=== PATIENT | male | born 1950 | race Caucasian/White ===

== ENCOUNTER → 2020-12-13 09:17 | Outpatient (BNVA) | payer MEDICARE, OTHER, SELFPAY | PROVIDERS: Family Provider Family Medicine; PCP Family Medicine; Visit Provider Surgery | DX: Z01.812 Encounter for preprocedural laboratory examination (principal); Z20.822 Contact with and (suspected) exposure to COVID-19 | CPT/HCPCS: 87635 ==

== ENCOUNTER 2020-12-18 08:38 | Day surgery (SDC) | payer MEDICARE, OTHER, SELFPAY ==
[2020-12-18 09:34] VITALS: BP 128/72; PULSE 58; RESP 18; TEMP 37.1; O2SAT 98
--- NOTE | 2020-12-18 09:37 | ANES.PREANE2 ---
Pre-Anesthetic Assessment Pre-Anesthetic Assessment: Height/Weight: Height 1.68 m Weight 85.729 kg Temp Pulse Resp BP Pulse Ox 98.7 F 58 L 18 128/72 98 12/18/20 09:34 12/18/20 09:34 12/18/20 09:34 12/18/20 09:34 12/18/20 09:34 Preop Diagnosis: Change in bowel habits Proposed Procedure: Operation Date: 12/18/20 10:15 Proposed Procedures p Colonoscopy 82567 R19.7(Not Applicable) - Mikey Sandy MD Was Beta Yvonne taken within 24 hours: N/A Was Clonidine taken within 24 hours: N/A Last intake: Intake Last Liquid Date 12/17/20 Last Liquid Time 20:30 Last Solid Date 12/16/20 Last Solid Time 20:00 Social: Social History: No alcohol and No tobacco Exam: Pre-Anes Outpt Exam: alert, oriented x 3, clear to auscultation bilaterally and regular rate & rhythm Airway: Submandibular: WNL Cervical ROM: WNL MP: 2 CV/HEM: CV/HEM: HTN Musc/skel: Musc/skel: RA Anesthetic Plan: ASA status: 2 Anesthesia: MAC Risk of > 500 ml blood loss (7ml/kg in children): No PFSH Anesthesia PFSH: Family History Father CAD (coronary artery disease) Grandmother Cancer Grandfather Stroke Denies family history of Diabetes Hypertension Social History Smoking and tobacco status: never smoked Alcohol intake: never Lives independently: Yes Household members: spouse Data Anesthesia Cardiac Studies: No Data to Display
[2020-12-18] MEDS: sodium chloride 0.9% 1,000 ML 30 ML IV (09:39)
--- NOTE | 2020-12-18 09:40 | W.PM.OPSUD ---
Surgery/Procedure H&P Update DATE OF PROCEDURE: December 18, 2020 DATE H&P PERFORMED: 11/21/20 H&P UPDATE INFORMATION: I have reviewed H&P completed within last 30 days, I have examined patient prior to procedure and No changes to prior documentation PREOP DIAGNOSIS: Change in bowel habits PRIMARY INDICATION FOR PROCEDURE: The same PLANNED PROCEDURE: Operation Date: 12/18/20 10:15 Proposed Procedures p Colonoscopy 66314 R19.7(Not Applicable) - Mikey Sandy MD
[2020-12-18 10:42] VITALS: BP 122/55; PULSE 63; RESP 18; TEMP 36.1; O2SAT 100
--- NOTE | 2020-12-18 11:09 | ANE.PACU2 ---
Inpatient post-anesthesia follow up: Airway intact: Yes Vital signs: Temperature 97.0 F Pulse Rate 63 Respiratory Rate 18 Blood Pressure 122/55 Pulse Oximetry 100 Oxygen Delivery Me thod Room Air Oxygen Flow Rate Fraction of Inspir ed Oxygen Hydration adequate: Yes Nausea and vomiting: No Pain level: 1 Mental status: Baseline
== END 2020-12-18 11:20 | disposition home or self-care (01) ==
PROVIDERS: PCP Family Medicine; Visit Provider Surgery
PROC: 0DJD8ZZ Inspection of Lower Intestinal Tract, Via Natural or Artificial Opening Endoscopic (ICD-10-PCS; CPT 45378; principal; 2020-12-18 10:15)
DX: R19.4 Change in bowel habit (principal); K57.30 Diverticulosis of large intestine without perforation or abscess without bleeding; Z82.49 Family history of ischemic heart disease and other diseases of the circulatory system
CPT/HCPCS: 45378; 83630; 84311; 87493; 87506; 96360; J2704; J7030

== ENCOUNTER → 2023-10-12 12:31 | Outpatient (BNVA) | payer MEDICARE, OTHER, SELFPAY | PROVIDERS: PCP Family Medicine; Referring Provider Family Medicine; Visit Provider Specialist | DX: G56.03 Carpal tunnel syndrome, bilateral upper limbs (principal); G56.23 Lesion of ulnar nerve, bilateral upper limbs; R29.898 Other symptoms and signs involving the musculoskeletal system | CPT/HCPCS: 95911 ==

== ENCOUNTER → 2023-11-08 09:03 | Outpatient (BNVA) | payer MEDICARE, OTHER, SELFPAY | PROVIDERS: PCP Family Medicine; Visit Provider Specialist | DX: G56.03 Carpal tunnel syndrome, bilateral upper limbs (principal) | CPT/HCPCS: 73110; 99204 ==

== ENCOUNTER 2024-08-10 07:26 | Outpatient (CLI) | payer MEDICARE, OTHER, SELFPAY ==
--- NOTE | 2024-08-10 07:29 | CTR_ITS ---
PROCEDURE INFORMATION: Exam: CT Temporal Bones Without Contrast. Exam date and time: 08/10/2024 7:55 AM Age: 74 years old Clinical indication: Hearing loss; Additional info: Chronic serous otitis media, bilateral TECHNIQUE: Imaging protocol: Computed tomography of the temporal bones without contrast. Radiation optimization: All CT scans at this facility use at least one of these dose optimization techniques: automated exposure control; mA and/or kV adjustment per patient size (includes targeted exams where dose is matched to clinical indication); or iterative reconstruction. COMPARISON: No relevant prior studies available. RADIATION DOSE METRICS: Total DLP (mGy-cm): 558.41 FINDINGS: RIGHT TEMPORAL BONE: Right mastoid process is not developmentally pneumatized. Right middle ear cavity and attic are opacified, but middle ear ossicles and scutum appear intact. There is apparent dehiscence of the tegmen tympani (series 11, image 67) No gross bone destruction involving the bony labyrinth. LEFT TEMPORAL BONE: Left mastoid process is not developmentally pneumatized. There is a fluid level within the attic and thinning of the left tegmen tympani, with possible small foci of dehiscence posteriorly and anteriorly (series 7, image 62; series 7, image 74). Left middle ear ossicles appear intact. There is partial opacification of the left middle ear cavity, including sinus tympani, facial recess, Prussak space, and adjacent to the stapes. The scutum appears intact. No obvious bone destruction involving the bony labyrinth. Incidental note of a midline 1 cm mucous retention cyst or polypoid mass in the right frontal. A right nasal septal spur is also noted. CT/CT temporal bone wo con* [id number] IMPRESSION: 1. Bilateral otitis media involving the mastoid antra, with relatively wide dehiscence of the anterior tegmen tympani on the right and probable small foci of dehiscence involving the left tegmen tympani. Middle ear opacification is more extensive on right than left. No obvious bone destruction involving middle ear ossicles or scuta. 2. Developmentally absent pneumatization of the mastoid processes.
== END 2024-08-10 07:27 | disposition home or self-care (01) ==
LOC: RAD 07:28
PROVIDERS: PCP Family Medicine; Visit Provider Specialist
DX: H65.23 Chronic serous otitis media, bilateral (principal); H90.6 Mixed conductive and sensorineural hearing loss, bilateral
CPT/HCPCS: 70480

== ENCOUNTER 2025-07-25 07:07 | Emergency (ER) | payer MEDICARE, OTHER, SELFPAY ==
--- NOTE | 2025-07-25 07:13 | W.ED.GENADLT ---
HPI - General Adult General: Chief complaint: GI Bleed Stated complaint: blood coming out of butt-painful Time Seen by Provider: 07/25/25 07:12 History of Present Illness: 75-year-old male presents emergency room complaining of bright red blood per rectum. This been ongoing for 4 months he has been treated presumptively for diverticulitis and hemorrhoids several times. He has had a CT back in May in [place]. He has not had any recent endoscopy. Patient is having bleeding in between bowel movements. He wakes up bleeding is saturated his underwear. He is not on any anticoagulants. Denies fever sweats or chills Associated symptoms: Deny chest pain, dyspnea or rash Related Data Home Medications ?Medication ?Instructions ?Recorded ?Confirmed adalimumab 40 mg/0.8 mL 40 mg SUBCUT Q14D 11/21/20 07/25/25 subcutaneous syringe kit (Humira) atorvastatin 20 mg tablet 20 mg PO DAILY 11/21/20 07/25/25 hydrochlorothiazide 25 mg tablet 25 mg PO DAILY 11/21/20 07/25/25 acetaminophen 650 mg 1,300 mg PO Q12H PRN patient 07/25/25 07/25/25 tablet,extended release (Tylenol Arthritis Pain) azelastine 0.05 % eye drops 1 drp ophthalmic (eye) BID 07/25/25 07/25/25 cholecalciferol (vitamin D3) 1,250 1,250 mcg PO Q7D 07/25/25 07/25/25 mcg (50,000 unit) capsule dexamethasone 0.5 mg/5 mL oral See Rx Instructions .Route .COMPLEX 07/25/25 07/25/25 elixir famotidine 20 mg tablet 20 mg PO BID 07/25/25 07/25/25 finasteride 5 mg tablet 5 mg PO DAILY 07/25/25 07/25/25 hydrocortisone 2.5 % topical cream 1 applic TN BID 07/25/25 07/25/25 with perineal applicator (Procto-Med HC) meloxicam 15 mg tablet 15 mg PO DAILY 07/25/25 07/25/25 omeprazole 20 mg capsule,delayed 20 mg PO DAILY 07/25/25 07/25/25 release potassium chloride 20 mEq 20 meq PO QAM 07/25/25 07/25/25 tablet,extended release(part/cryst) Previous Rx's ?Medication ?Instructions ?Recorded hydrocodone 5 mg-acetaminophen 325 1 tab PO Q6H PRN pain #15 tabs 07/25/25 mg tablet ondansetron HCl 4 mg tablet 4 mg PO Q6H PRN nausea and 07/25/25 vomiting #20 tabs Allergies Allergy/AdvReac Type Severity Reaction Status Date / Time sulfamethoxazole (From Allergy Intermediate nausea/vomi Verified 01/25/24 14:51 Bactrim) ting trimethoprim (From Bactrim) Allergy Intermediate nausea/vomi Verified 01/25/24 14:51 ting Review of Systems Const: Denies: fever(s) or chills Card: Denies: chest pain Resp: Denies: dyspnea GI: Reports: hematochezia; Denies: abdominal pain : Denies: dysuria, urinary frequency or urinary urgency Musc: Denies: neck pain or back pain Skin/Breast: Denies: rash PFSH ED PFSH: Medical History Diverticulosis Enlarged prostate Require urology consultation Change in bowel habits Family History Father CAD (coronary artery disease) Grandmother Cancer Grandfather Stroke Denies family history of Diabetes Hypertension Social History Smoking and tobacco/nicotine status: never used tobacco/nicotine Alcohol intake: never Substance/Drug Use: current Lives independently: Yes Household members: spouse Physical Exam Const: GENERAL APPEARANCE: cooperative ORIENTATION/CONSCIOUSNESS: Yes awake, Yes oriented to person, Yes oriented to place and Yes oriented to time HENMT: COMMON NORMALS: normocephalic, atraumatic and hearing grossly normal bilaterally HEAD & SCALP: normocephalic and atraumatic Resp: COMMON NORMALS: normal respiratory effort, No retractions, No use of accessory muscles and clear to auscultation bilaterally AUSCULTATION: clear to auscultation bilaterally Cardio: COMMON NORMALS: regular rate, regular rhythm and No murmurs present (Cardio) RATE: regular rate RHYTHM: regular rhythm GI: COMMON NORMALS: Soft to palpation and No hepatosplenomegaly present AUSCULTATION: Yes normoactive bowel sounds PALPATION: Yes Soft to palpation, No Tenderness to palpation present (GI), No Guarding due to palpation present (GI) and Yes No hepatosplenomegaly present OTHER: Rectal exam distorted tissue with a fistulous at this 12 o'clock position on the rectum no bright red blood at this time. Mucus is sharply Hemoccult positive Extremity: COMMON NORMALS: normal to inspection, capillary refill normal, no clubbing, cyanosis or edema, no calf tenderness and no pedal edema Neuro: SENSORIUM/ORIENTATION: Yes oriented to person, Yes oriented to place and Yes oriented to time Skin: COMMON NORMALS: no rashes or lesions noted GENERAL SKIN EXAM: no rashes or lesions noted Course Vital Signs: Vital signs: Vital Signs Temperature 98.2 F 07/25/25 07:14 Pulse Rate 97 07/25/25 07:14 Respiratory Rate 20 H 07/25/25 07:14 Blood Pressure 118/63 07/25/25 09:38 Pulse Oximetry 100 07/25/25 09:38 Oxygen Delivery Me thod Room Air 07/25/25 09:38 MDM - General Adult Medical Decision Making Medical decision making Social determinants: Difficulty transportation access to medical care I reviewed the patient's medical record. I reviewed the patient's current home meds. Alternate historians: Differential diagnosis: Diverticulitis hemorrhoids rectal CA Lab Review: Hemoglobin 9.9 platelets normal Imaging: Rectal mass consistent with what was found on exam Assessment of risk Level of risk: Moderate to high Hospitalization considerations: Reviewed with patient consideration if there is evidence of near obstruction and patient does not have obstruction discussed with radiologist. Reexamination: Improved no active bleeding Assessment and plan: Discussed options. At this point he does not really want to go to [place] is a difficult time with travel for him and his . I talked to Dr. Iqbal who will see him tomorrow for biopsy. Recommend liquid diet for now. Return if has further problems. At the time of discharge he is not having active bleeding I think he can safely be discharged she was advised to return if he has further bleeding. Lab Data 07/25/25 07:27 07/25/25 07:27 Radiology Impressions Abdomen/Pelvis CT 07/25/25 07:18 IMPRESSION: 1. Soft tissue mass in the LEFT anorectal region measures 3.6 x 2.7 cm. There is displacement of the lumen to the RIGHT. 2. There is additional long segment circumferential colonic wall thickening beginning in the descending colon through the sigmoid. Pattern of enhancement can be seen with acute inflammatory bowel disease and hemorrhage. Also reperfusion after ischemia. 3. No free air or perforation. 4. Normal appendix. 5. Bilateral parapelvic cysts. 6. Prostate enlargement. Laboratory Results WBC 8.11 10^3/uL (3.29-11.43) 07/25/25 07:27 RBC 3.45 10^6/uL (3.85-5.65) L 07/25/25 07:27 Hgb 9.90 g/dL (11.27-16.99) L 07/25/25 07:27 Hct 31.1 % (37-53) L 07/25/25 07: MCV 90.1 fl (82-101) 07/25/25 07:27 MCH 28.7 pg (27-33) 07/25/25 07: MCHC 31.8 g/dL (30-55) 07/25/25 07: RDW 13.4 % (12.1-15.1) 07/25/25 07:27 Plt Count 354 10^3/cmm (157-399) 07/25/25 07:27 MPV 7.9 fL (7.4-10.4) 07/25/25 07:27 Neut % (Auto) 72.6 % 07/25/25 07:27 Lymph % (Auto) 15.0 % 07/25/25 07:27 Buchanan % (Auto) 10.4 % 07/25/25 07:27 Eos % (Auto) 1.0 % 07/25/25 07:27 Baso % (Auto) 0.4 % 07/25/25 07:27 Neut # (Auto) 5.89 10^3/uL (1.8-7.7) 07/25/25 07:27 Lymph # (Auto) 1.2 10^3/uL (0.8-4.8) 07/25/25 07:27 Buchanan # (Auto) 0.8 10^3/uL (0.2-0.9) 07/25/25 07:27 Eos # (Auto) 0.1 10^3/uL (0.0-0.8) 07/25/25 07:27 Baso # (Auto) 0.0 10^3/uL (0.0-0.1) 07/25/25 07:27 Nucleated RBC % (auto) 0 % 07/25/25 07: Nucleated RBCs # 0.0 /100WBC 07/25/25 07:27 PT 14.50 SECONDS (12.1-14.9) 07/25/25 07:27 INR 1.06 (0.8-1.2) 07/25/25 07:27 APTT 32.8 SECONDS (23.9-36.7) 07/25/25 07:27 Sodium 135 mmol/L (136-145) L 07/25/25 07:27 Potassium 3.6 mmol/L (3.5-5.1) 07/25/25 07:27 Chloride 99 mmol/L (98-107) 07/25/25 07:27 Carbon Dioxide 20 mmol/L (22-29) L 07/25/25 07:27 Anion Gap 19.6 (5-19) H 07/25/25 07:27 BUN 16 mg/dL (8-23) 07/25/25 07:27 Creatinine 0.5 mg/dL (0.7-1.2) L 07/25/25 07:27 GFR Calculation Not Reportable 07/25/25 07:27 Glucose 142 mg/dL (65-115) H 07/25/25 07:27 Calculated Osmolality 284 mOsm/kg (285-295) L 07/25/25 07:27 Calcium 8.7 mg/dL (8.5-10.5) 07/25/25 07:27 Total Bilirubin 0.5 mg/dL (0.15-1.2) 07/25/25 07:27 AST 18 U/L (0-40) 07/25/25 07:27 ALT 18 U/L (0-41) 07/25/25 07:27 Alkaline Phosphatase 104 U/L (40-130) 07/25/25 07:27 Total Protein 6.5 g/dL (6.6-8.7) L 07/25/25 07:27 Albumin 2.9 g/dL (3.5-5.2) L 07/25/25 07:27 Globulin 3.6 g/dL (1.3-4.6) 07/25/25 07:27 All radiology interpretation(s) finalized by discharge Discharge Plan Discharge Patient Disposition: Home Clinical Impression: Mass in rectum Condition: Stable Prescriptions: New hydrocodone-acetaminophen 5-325 mg tablet 1 tab PO Q6H PRN (Reason: pain) Qty: 15 0RF ondansetron HCl 4 mg tablet 4 mg PO Q6H PRN (Reason: nausea and vomiting) Qty: 20 0RF No Action atorvastatin 20 mg tablet 20 mg PO DAILY hydrochlorothiazide 25 mg tablet 25 mg PO DAILY Humira 40 mg/0.8 mL syringe kit 40 mg SUBCUT Q14D azelastine 0.05 % drops 1 drp ophthalmic (eye) BID acetaminophen [Tylenol Arthritis Pain] 650 mg Tablet Extended Release 1,300 mg PO Q12H PRN (Reason: patient ) meloxicam 15 mg tablet 15 mg PO DAILY hydrocortisone [Procto-Med HC] 2.5 % cream with perineal applicator 1 applic TN BID famotidine 20 mg tablet 20 mg PO BID finasteride 5 mg tablet 5 mg PO DAILY omeprazole 20 mg capsule,delayed release(DR/EC) 20 mg PO DAILY cholecalciferol (vitamin D3) 1,250 mcg (50,000 unit) capsule 1,250 mcg PO Q7D dexamethasone 0.5 mg/5 mL elixir See Rx Instructions .ROUTE .COMPLEX Rx Instructions: SWISH AND SPIT 5 ML BY MOUTH THREE TO FOUR TIMES DAILY. IT IS IMPORTANT TO KEEP THE MEDICATION IN THE MOUTH FOR FIVE MINUTES PRIOR TO SPITTING IT OUT. DO NOT RINSE AFTERWARD AND AVIOD EATING OR DRINKING FOR 30 MINUTES. potassium chloride 20 mEq tablet,ER particles/crystals 20 meq PO QAM Discharge Orders: Discharge ED (Routine); Ordered 07/25/25 Ordered By: Timothy Ponce Referrals: Pierre Estrada [Primary Care Provider, Family Practice] Discharge Diet: Full LIquid Patient Instructions: Opioid Safety, Pain Management, Patient Portal & Damion Instructions Activity Restrictions/Additional Instructions: You thank you for choosing [facility] for your healthcare needs today. It is very important that you follow up as instructed or that you return to the Emergency Department should you have concerns or if your condition changes or worsens in any way. Emergency department visits are focused on emergent conditions, in some cases you may require further evaluation on an outpatient basis. You are seen in the emergency room with a complaint of painful rectal bleeding on CT exam done in the emergency room there is a mass on the rectum. It is not obstructing the colon at this point this is likely the source of bleeding. We have made an appointment for you with Dr. Iqbal tomorrow morning at 11 AM to have this evaluated further and he can talk to you about the process of getting it biopsied to confirm a diagnosis and seek treatment options. It is likely that you will continue to have intermittent bleeding and painful bowel movements. You are given a prescriptions for pain and nausea medicines. Your hemoglobin at this time is stable but will need to be monitored. (Please note that included in your discharge packet is information concerning opioid safety and pain management. This information is given to all patients were discharged from the ER regardless of their discharge diagnosis or the medicines they usually take or are prescribed.) Print Language: Portuguese Coding Level of Care Code ED Alteration Workroom Supervisor for Nate Olivier
[2025-07-25 07:14] VITALS: BP 150/97; PULSE 97; RESP 20; TEMP 36.8; O2SAT 99
--- NOTE | 2025-07-25 07:18 | CT_ITS ---
WS: [id number] CT ABDOMEN AND PELVIS WITH CONTRAST HISTORY: abd pain/rectal bleeding TECHNIQUE: Imaging performed of the abdomen and pelvis with IV contrast. Single phase imaging of the abdomen. Coronal and sagittal reformats are submitted. All CT scans at [facility] use at least one of these dose optimization techniques: automated exposure control; mA and/or kV adjustment per patient size (includes targeted exams where dose is matched to clinical indication); or iterative reconstruction. IV CONTRAST: Omnipaque 350; 100 mL IV. Oral contrast: No DLP: 615.03 mGy.cm COMPARISON: 08/24/2011 Lower thorax: Lung bases are clear. Heart is normal size. Small hiatal hernia. Liver/biliary system: Normal size liver. Focal fatty sparing along the falciform ligament. No intrahepatic duct dilatation. Normal portal vein. Gallbladder: Normal. No gallstones or wall thickening. No pericholecystic fluid. Pancreas: Mild diffuse pancreatic atrophy. No duct dilatation. Spleen: Normal size with granuloma. Adrenal glands: Normal. Right kidney: Numerous parapelvic cysts. No hydronephrosis. There are numerous calcifications which are nonobstructing in the renal pelvis. Left kidney: Normal size kidney with numerous central parapelvic cysts and calcifications which are nonobstructing. Aorta: Mild atherosclerosis with no aneurysm. Lymphadenopathy: None. Free fluid: None. GI tract: Normally distended stomach. No small bowel obstruction. Normal appendix. Colon is tortuous with mild diffuse constipation. There are a few scattered diverticula beginning in the descending and through the sigmoid colon. Colonic wall thickening with increased attenuation is circumferential beginning in the mid descending colon. Long segment colonic wall thickening with a tortuous colon. Findings suspicious for a soft tissue mass near the LEFT anorectal junction measuring 3.6 x 2.7 cm. There is slight displacement of the lumen to the RIGHT. Abdominal wall: Fat containing umbilical hernia. Pelvis: Urinary bladder is well distended. Prostate gland is heterogeneous and enlarged encroaching into the bladder. Bones: Advanced degenerative disc disease at L4-5 and L5-S1. L4 anterolisthesis by [address]/CT abdomen pelvis w con* [id number] IMPRESSION: 1. Soft tissue mass in the LEFT anorectal region measures 3.6 x 2.7 cm. There is displacement of the lumen to the RIGHT. 2. There is additional long segment circumferential colonic wall thickening be ginning in the descending colon through the sigmoid. Pattern of enhancement can be seen with acute inflammatory bowel disease and hemorrhage. Also reperfusion after ischemia. 3. No free air or perforation. 4. Normal appendix. 5. Bilateral parapelvic cysts. 6. Prostate enlargement.
[2025-07-25 07:35] LABS: Hematocrit 31.1 % (37-53); Hemoglobin 9.90 g/dL (11.27-16.99); Mean Corpuscular HGB Conc 31.8 g/dL (30-55); Mean Corpuscular Hemoglobin 28.7 pg (27-33); Mean Corpuscular Volume 90.1 fl (82-101); Nucleated Red Blood Cells % 0 %; Platelet Count 354 10^3/cmm (157-399); Red Blood Count 3.45 10^6/uL (3.85-5.65); White Blood Count 8.11 10^3/uL (3.29-11.43)
[2025-07-25 07:49] LABS: INR 1.06 (0.8-1.2); Prothrombin Time 14.50 SECONDS (12.1-14.9)
[2025-07-25 07:50] LABS: Partial Thromboplastin Time 32.8 SECONDS (23.9-36.7)
[2025-07-25 07:52] VITALS: BP 117/76
[2025-07-25 07:58] LABS: Alanine Aminotransferase 18 U/L (0-41); Albumin Level 2.9 g/dL (3.5-5.2); Alkaline Phosphatase 104 U/L (40-130); Anion Gap 19.6 (5-19); Aspartate Amino Transferase 18 U/L (0-40); Blood Urea Nitrogen 16 mg/dL (8-23); Calcium 8.7 mg/dL (8.5-10.5); Carbon Dioxide 20 mmol/L (22-29); Chloride 99 mmol/L (98-107); Globulin 3.6 g/dL (1.3-4.6); Glucose 142 mg/dL (65-115); Osmolality Calculated 284 mOsm/kg (285-295); Potassium 3.6 mmol/L (3.5-5.1); Sodium 135 mmol/L (136-145); Total Protein 6.5 g/dL (6.6-8.7)
[2025-07-25 08:12] LABS: Slide Review Slide Review Perform
[2025-07-25] MEDS: iohexol 350 mg/mL 500 mL Btl (per mL) IV (08:12)
[2025-07-25 09:21] VITALS: BP 108/62; O2SAT 99
[2025-07-25 09:38] VITALS: BP 118/63; O2SAT 100
== END 2025-07-25 11:07 | disposition home or self-care (01) ==
PROVIDERS: Emergency Provider Family Medicine; PCP Family Medicine
DX: K62.89 Other specified diseases of anus and rectum (principal)
CPT/HCPCS: 36415; 74177; 80053; 85025; 85610; 85730; 99285

== ENCOUNTER → 2025-07-26 11:42 | Outpatient (BNVA) | payer MEDICARE, OTHER, SELFPAY | PROVIDERS: PCP Family Medicine; Visit Provider Student in an Organized Health Care Education/Training Program | DX: Z12.11 Encounter for screening for malignant neoplasm of colon (principal); C18.9 Malignant neoplasm of colon, unspecified; K62.89 Other specified diseases of anus and rectum | CPT/HCPCS: 36415; 82378 ==

== ENCOUNTER 2025-07-30 07:31 | Emergency (ER) | payer MEDICARE, OTHER, SELFPAY ==
--- NOTE | 2025-07-30 07:40 | W.ED.MALEGU ---
HPI - Male Genitourinary General: Chief complaint: Urogenital-Male Stated complaint: can't pee Time Seen by Provider: 07/30/25 07:38 Source: patient Mode of arrival: ambulatory Limitations: no limitations History of Present Illness: 75-year-old male here stating that he has not been able to urinate since yesterday afternoon. He states he feels like his bladder is full but is not able to urinate. Does have a history of possible colon cancer denies any history urinary retention denies any fevers. He rates pain a 5 out of 10 Related Data Home Medications ?Medication ?Instructions ?Recorded ?Confirmed adalimumab 40 mg/0.8 mL 40 mg SUBCUT Q14D 11/21/20 07/26/25 subcutaneous syringe kit (Humira) atorvastatin 20 mg tablet 20 mg PO DAILY 11/21/20 07/26/25 hydrochlorothiazide 25 mg tablet 25 mg PO DAILY 11/21/20 07/26/25 acetaminophen 650 mg 1,300 mg PO Q12H PRN patient 07/25/25 07/26/25 tablet,extended release (Tylenol Arthritis Pain) azelastine 0.05 % eye drops 1 drp ophthalmic (eye) BID 07/25/25 07/26/25 cholecalciferol (vitamin D3) 1,250 1,250 mcg PO Q7D 07/25/25 07/26/25 mcg (50,000 unit) capsule dexamethasone 0.5 mg/5 mL oral See Rx Instructions .Route .COMPLEX 07/25/25 07/26/25 elixir famotidine 20 mg tablet 20 mg PO BID 07/25/25 07/26/25 finasteride 5 mg tablet 5 mg PO DAILY 07/25/25 07/26/25 hydrocortisone 2.5 % topical cream 1 applic IN BID 07/25/25 07/26/25 with perineal applicator (Procto-Med HC) meloxicam 15 mg tablet 15 mg PO DAILY 07/25/25 07/26/25 omeprazole 20 mg capsule,delayed 20 mg PO DAILY 07/25/25 07/26/25 release potassium chloride 20 mEq 20 meq PO QAM 07/25/25 07/26/25 tablet,extended release(part/cryst) etanercept 50 mg/mL (1 mL) 50 mg SUBCUT Q7D 07/26/25 07/26/25 subcutaneous syringe (Enbrel) Previous Rx's ?Medication ?Instructions ?Recorded hydrocodone 5 mg-acetaminophen 325 1 tab PO Q6H PRN pain #15 tabs 07/25/25 mg tablet ondansetron HCl 4 mg tablet 4 mg PO Q6H PRN nausea and 07/25/25 vomiting #20 tabs Allergies Allergy/AdvReac Type Severity Reaction Status Date / Time sulfamethoxazole (From Allergy Intermediate nausea/vomi Verified 07/26/25 10:38 Bactrim) ting trimethoprim (From Bactrim) Allergy Intermediate nausea/vomi Verified 07/26/25 10:38 ting Review of Systems : Reports: difficulty urinating PFSH ED PFSH: Medical History Diverticulosis Enlarged prostate Require urology consultation Change in bowel habits Family History Father CAD (coronary artery disease) Grandmother Cancer Grandfather Stroke Denies family history of Diabetes Hypertension Social History Smoking and tobacco/nicotine status: former use of tobacco/nicotine Alcohol intake: never Substance/Drug Use: current Lives independently: Yes Household members: spouse Physical Exam Const: COMMON NORMALS: no acute distress, patient oriented x3 and healthy appearing HENMT: COMMON NORMALS: normocephalic and atraumatic HEAD & SCALP: normocephalic and atraumatic Neck/C-Spine: COMMON NORMALS: full ROM and supple Chest: COMMONS NORMALS: normal inspection of the chest Resp: COMMON NORMALS: normal respiratory effort Cardio: COMMON NORMALS: regular rate, regular rhythm and No murmurs present (Cardio) RATE: regular rate RHYTHM: regular rhythm GI: COMMON NORMALS: Normal to inspection, nondistended, normoactive bowel sounds present, Soft to palpation, non-tender and no masses PALPATION: Yes Soft to palpation Extremity: COMMON NORMALS: normal to inspection and full ROM Neuro: COMMON NORMALS: patient oriented x3, moves all extremities and no focal motor deficits Psych: COMMON NORMALS: mental status grossly normal, Normal thought process present and cooperative THOUGHT PROCESS: Normal thought process present Skin: COMMON NORMALS: no rashes or lesions noted and no wounds GENERAL SKIN EXAM: no rashes or lesions noted Course Vital Signs: Vital signs: Vital Signs Temperature 97.6 F 07/30/25 07:42 Pulse Rate 123 H 07/30/25 07:42 Respiratory Rate 17 07/30/25 07:42 Blood Pressure 143/87 07/30/25 07:42 Pulse Oximetry 99 07/30/25 07:53 Oxygen Delivery Me thod Room Air 07/30/25 07:53 MDM - Male Medical Decision Making Patient presents here with difficulty urinating differential includes cystitis, urinary retention. Did place Charles and had over thousand out he feels much improved. Urinalysis showed no signs of UTI will leave Charles in with leg bag he is follow-up his PCP will put a referral into urology as well return if worsening he understands agrees to plan Medical Records I reviewed the patient's medical records. Lab Data I reviewed the patient's lab results. Laboratory Results Urine Color Yellow (Yellow) 07/30/25 07:45 Urine Appearance Clear (CLEAR) 07/30/25 07:45 Urine pH 5.0 (5-7) 07/30/25 07:45 Ur Specific [place] 1.026 (1.005-1.030) 07/30/25 07:45 Urine Protein 1+ (Negative) A 07/30/25 07:45 Urine Glucose (UA) Negative (Normal) 07/30/25 07:45 Urine Ketones 2+ (Negative) H 07/30/25 07:45 Urine Blood 2+ (Negative) A 07/30/25 07:45 Urine Nitrate Negative (Negative) 07/30/25 07:45 Urine Bilirubin Negative (Negative) 07/30/25 07:45 Urine Urobilinogen 1.0 mg/dL (Negative) 07/30/25 07:45 Ur Leukocyte Esterase Trace (Negative) A 07/30/25 07:45 Urine RBC 11-20 /hpf (0-2) H 07/30/25 07:45 Urine WBC 6-10 /hpf (0-5) 07/30/25 07:45 Ur Squamous Epith Cells 0-5 /hpf (0-5) 07/30/25 07:45 Amorphous Sediment Not Reportable 07/30/25 07:45 Urine Bacteria None seen /hpf (NONE) 07/30/25 07:45 Hyaline Casts 11.97 /lpf 07/30/25 07:45 No radiology studies performed this visit Discharge Plan Discharge Patient Disposition: Home Clinical Impression: Acute retention of urine Condition: Stable Prescriptions: No Action atorvastatin 20 mg tablet 20 mg PO DAILY hydrochlorothiazide 25 mg tablet 25 mg PO DAILY Humira 40 mg/0.8 mL syringe kit 40 mg SUBCUT Q14D Enbrel 50 mg/mL (1 mL) Syringe 50 mg SUBCUT Q7D azelastine 0.05 % drops 1 drp ophthalmic (eye) BID acetaminophen [Tylenol Arthritis Pain] 650 mg Tablet Extended Release 1,300 mg PO Q12H PRN (Reason: patient ) meloxicam 15 mg tablet 15 mg PO DAILY hydrocortisone [Procto-Med HC] 2.5 % cream with perineal applicator 1 applic IN BID famotidine 20 mg tablet 20 mg PO BID finasteride 5 mg tablet 5 mg PO DAILY omeprazole 20 mg capsule,delayed release(DR/EC) 20 mg PO DAILY cholecalciferol (vitamin D3) 1,250 mcg (50,000 unit) capsule 1,250 mcg PO Q7D dexamethasone 0.5 mg/5 mL elixir See Rx Instructions .ROUTE .COMPLEX Rx Instructions: SWISH AND SPIT 5 ML BY MOUTH THREE TO FOUR TIMES DAILY. IT IS IMPORTANT TO KEEP THE MEDICATION IN THE MOUTH FOR FIVE MINUTES PRIOR TO SPITTING IT OUT. DO NOT RINSE AFTERWARD AND AVIOD EATING OR DRINKING FOR 30 MINUTES. potassium chloride 20 mEq tablet,ER particles/crystals 20 meq PO QAM hydrocodone-acetaminophen 5-325 mg tablet 1 tab PO Q6H PRN (Reason: pain) Qty: 15 0RF ondansetron HCl 4 mg tablet 4 mg PO Q6H PRN (Reason: nausea and vomiting) Qty: 20 0RF Discharge Orders: Discharge ED (Routine); Ordered 07/30/25 Ordered By: Teddy Grigsby Referrals: Pierre Estrada [Primary Care Provider, Family Practice] - 4-7 days Discharge Diet: Advance as tolerated Discharge Activity: Resume usual activity Patient Instructions: Urinary Retention in Men (ED), Charles Catheter Placement and Care (ED) Print Language: Irish Coding Level of Care Code ED Service Dog Trainer for Nate Olivier
[2025-07-30 07:42] VITALS: BP 143/87; PULSE 123; RESP 17; TEMP 36.4; O2SAT 100; BMI 27.2
[2025-07-30 07:53] VITALS: O2SAT 99
[2025-07-30 08:06] LABS: Glucose Urine UA Negative (Normal); Nitrate Urine Negative (Negative); Specific Gravity, Urine 1.026 (1.005-1.030)
[2025-07-30 08:11] LABS: Add Urine Microscopic? YES
[2025-07-30 08:47] LABS: UA Slide Review UA Slide Review Perf
[2025-07-30 08:55] VITALS: BP 125/79; PULSE 97; O2SAT 100
--- NOTE | 2025-07-30 11:12 | DCPLANNER ---
Referral for urology sent to [facility]
== END 2025-07-30 09:01 | disposition home or self-care (01) ==
PROVIDERS: Emergency Provider Emergency Medicine; PCP Family Medicine
DX: R33.8 Other retention of urine (principal); Z87.891 Personal history of nicotine dependence
CPT/HCPCS: 51702; 81001; 87086; 99283

== ENCOUNTER 2025-07-31 00:31 | Inpatient (IN) | payer MEDICARE, OTHER, SELFPAY ==
[2025-07-31] VITALS (13 sets, daily range): BP systolic 0–116; BP diastolic 0–73; PULSE 0–114; RESP 0–34; TEMP -17.7–36.4; O2SAT 0–99; BMI 27.3
--- OUTSIDE RECORDS SUMMARY | 2025-07-31 00:41 | XMS_ITS | Clinical Summary ---
Author Organization [facility] [address] Address [address] [place] [address] Care Team Providers Care Fairing Worker Name Role Phone Pierre Estrada MD Primary Care Provider [phone] Allergies Active Allergy Reactions Criticality Noted Date Comments Alpha-Gal (Azgtnvjrj-Phciu-3,3 -Galactose) Diarrhea,Rash Low 07/20/2025 Sulfamethoxazole-Tri methoprim Other (See Comments) 02/22/2015 Achy, joints ache, tired, headaches Medications pyridoxine (VITAMIN B6) 100 mg Tablet Take 50 mg by mouth daily. Active etanercept (EnbreL SureClick) 50 mg/mL (1 mL) Pen InjectorIndicati ons:Psoriatic arthropathy (CMS/HCC) Inject 1 mL (50 mg) by subcutaneous injection every 7 days. 12 mL 3 025 Active acetaminophen (TYLENOL ARTHRITIS) 650 mg Extended Release tablet Take 650 mg by mouth 2 times daily. Active ondansetron (ZOFRAN ODT) 4 mg Tablet, Rapid Dissolve Take 1 Tablet (4 mg) by mouth every 8 hours as needed for Nausea/Emesis. Dissolve tablet on top of tongue, then swallow with saliva. 10 Tablet 1 025 Active triamcinolone acetonide (KENALOG) 0.1 % PasteIndications :Mouth sores Apply to affected area 2 times daily. 5 Gram 025 Active atorvastatin (LIPITOR) 20 mg tabletIndication s:Mixed hyperlipidemia Take 1 Tablet (20 mg) by mouth daily with supper. 100 Tablet 3 025 Active hydroCHLOROthiaz carey 25 mg tabletIndication s:Primary hypertension Take 1 Tablet (25 mg) by mouth daily. 90 Tablet 3 025 Active dexAMETHasone (DECADRON) 0.5 mg/5 mL ElixirIndication s:Aphthous ulcer 5 mL swish and spit three to four times daily. It is important to keep the medication in the mouth for five minutes prior to spitting it out. Do not rinse afterward and avoid eating or drinking for 30 minutes 237 mL 025 Active azelastine (OPTIVAR) 0.05 % solutionIndicati ons:Conjunctivit is of both eyes, unspecified conjunctivitis type Administer 1 Drop in both eyes 2 times daily. 6 mL 5 025 Active potassium CHLORIDE (K-TAB) 20 mEq Extended Release tablet Take 1 Tablet (20 mEq) by mouth daily with breakfast. 30 Tablet 025 Active cholecalciferol 1,250 mcg (50,000 unit) Capsule Take 1 Capsule (50,000 Units) by mouth every 7 days. 12 Capsule 3 025 Active hydrocortisone (CORTAID) 1 % Cream Apply to affected area 2 times daily. 28 Gram 2 025 Active meloxicam (MOBIC) 15 mg tabletIndication s:Psoriatic arthropathy (CMS/HCC) Take 1 Tablet (15 mg) by mouth daily. 90 Tablet 025 Active hydrocortisone (Proctozone-HC) 2.5 % cream with perineal applicatorIndica tions:Hemorrhoid s, unspecified hemorrhoid type Insert by rectum 2 times daily. 28 Gram 025 Active famotidine (PEPCID) 20 mg tabletIndication s:Allergy to alpha-gal,Gastro esophageal reflux disease without esophagitis Take 1 Tablet (20 mg) by mouth 2 times daily. 180 Tablet 3 025 Active finasteride (PROSCAR) 5 mg tabletIndication s:Benign prostatic hyperplasia with urinary frequency Take 1 Tablet (5 mg) by mouth daily. 90 Tablet 3 025 Active tamsulosin (FLOMAX) 0.4 mg capsuleIndicatio ns:Benign prostatic hyperplasia with urinary frequency Take 1 Capsule (0.4 mg) by mouth daily. 90 Capsule 3 024 2024 Discontinued(R eorder) atorvastatin (LIPITOR) 20 mg tabletIndication s:Mixed hyperlipidemia Take 1 Tablet (20 mg) by mouth daily with supper. 100 Tablet 3 024 2024 Discontinued(R eorder) hydroCHLOROthiaz carey 25 mg tabletIndication s:Primary hypertension Take 1 Tablet (25 mg) by mouth daily. 90 Tablet 3 024 2024 Discontinued(R eorder) OTHER COVID booster, Spikevax, 2199-7165 version, okay for pharmacist to administer 1 Each 025 2024 Discontinued meloxicam (MOBIC) 15 mg tabletIndication s:Psoriatic arthropathy (CMS/HCC) Take 1 Tablet (15 mg) by mouth daily. 90 Tablet 025 2024 Discontinued(R eorder) clindamycin HCL (CLEOCIN) 300 mg CapsuleIndicatio ns:Oral abscess Take 1 Capsule (300 mg) by mouth 3 times daily for 7 days. 21 Capsule 2024 nystatin (MYCOSTATIN) 100,000 unit/mL suspensionIndica tions:Thrush Take 5 mL (500,000 Units) by mouth 4 times daily for 7 days. 140 mL 025 2024 diphenhydrAMINE1 2.5 mg/5 mL-viscous lidocaine-Maalox 1:1:1 (MAGIC MOUTHWASH) oral suspension compoundIndicati ons:Mouth sores Take 5 mL by mouth see administration instructions for 7 days. 120 mL 025 2024 Discontinued diphenhydrAMINE1 2.5 mg/5 mL-viscous lidocaine-Maalox 1:1:1 (MAGIC MOUTHWASH) oral suspension compoundIndicati ons:Mouth sores Take 5 mL by mouth see administration instructions for 7 days. 120 mL 025 2024 Discontinued tamsulosin (FLOMAX) 0.4 mg capsuleIndicatio ns:Benign prostatic hyperplasia with urinary frequency Take 1 Capsule (0.4 mg) by mouth daily. 90 Capsule 3 025 2024 Discontinued(A lternate therapy prescribed) omeprazole (PriLOSEC) 20 mg Capsule, Delayed Release(E.C.)Ind ications:Other gastritis without bleeding Take 1 Capsule (20 mg) by mouth daily. 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 03/11/2023 Prediabetes 10/30/2020 Mixed hyperlipidemia 07/03/2020 Benign prostatic hyperplasia with urinary freque ncy 07/03/2020 Psoriatic arthropathy 07/14/2018 Positive CHANCE (antinuclear antibody) 04/28/2018 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 09/24/2016 Mass of right finger 07/29/2015 Keratosis, actinic 01/26/2014 Hypertension 09/25/2013 Obesity 09/25/2013 Rectal polyp 09/18/2013 Family history of colon cancer 09/04/2013 Environmental allergies Encounters Date Type Department Care Team Description 07/30/[address] [phone] Pierre Estrada MD Patient Communication 07/24/2025 External Device Data [facility]STRACTION Provider, Abstract 07/24/2025 External Device Data [facility]STRACTION Provider, Abstract 07/24/2025 External Device Data [facility] ABSTRACTION Provider, Abstract 07/24/2025 Results Follow-Up [address] [phone] Fiorella Panchal FNP PSA 07/23/2025 11:00 AM [employer] Office Visit [address] [phone] Fiorella Panchal FNP Encounter for support and coordination of transition of care (Primary Dx); FTT (failure to thrive) in adult; Allergy to alpha-gal; Acute diarrhea; Diverticulosis; Vitamin B 12 deficiency; Chronic diarrhea; Hemorrhoids, unspecified hemorrhoid type; Gastroesophageal reflux disease without esophagitis; Benign prostatic hyperplasia with urinary frequency; Primary hypertension; Psoriatic arthropathy 07/23/2025 Telephone [facility] Utilization Management [address] [phone] Kendal Olson RN Follow Up (Lisa Stanley, this is Kendal from [facility]. I was following up with you to see how you were feeling? Not much better /Do you have a PCP f/u appt? Yes, this morning. She changed some of my medications and is sending me to a specialist/surgeon /Did you understand your d/c instructions and/or d/c medications? Yes /If you have any questions or concerns, please give us a call. /) 07/23/2025 Refill [facility] Rheumatology- [facility] [address] [address] Claudia Clements PA Psoriatic arthropathy ([facility]) 07/22/2025 Results Follow-Up [facility] Medicine [address] [address] Kathleen Nascimento APRN URINE CULTURE 07/20/2025 8:48 AM [employer] - 07/21/2025 12:58 PM [facility] Hospital Encounter [facility] Medical Surgical [address] [address] Chaparro Gan MD Acute cystitis with hematuria Discharge Disposition: Home or Self Care 07/20/2025 8:20 AM [employer] Office Visit [address] [phone] Ashlee Orozco FNP Diverticulosis (Primary Dx); Immunodeficiency due to treatment with immunosuppressive medication; Positive CHANCE (antinuclear antibody); FTT (failure to thrive) in adult; Allergy to alpha-gal; Abnormal weight loss; Acute diarrhea; Continuous severe abdominal pain; Hypokalemia 07/20/[address] [phone] Cathy Christina Patient Communication 07/20/2025 Travel 07/18/2025 9:28 AM [employer] - 07/18/2025 11:59 PM [facility] Hospital Encounter [facility] [address] [facility] [address] [place] [address] Pierre Estrada MD Discharge Disposition: Home or Self Care 07/18/2025 Results Follow-Up [address] [phone] Pierre Estrada MD CBC WITH DIFFERENTIAL, VITAMIN B12 LEVEL, VITAMIN D 25 HYDROXY, Additional followed-up results: 8 07/17/2025 8:20 AM [employer] Office Visit [address] [phone] Pierre Estrada MD Medicare annual wellness visit, subsequent (Primary Dx); Hematochezia; History of diverticulitis; Change in bowel habits; Abnormal weight loss; Conjunctivitis of both eyes, unspecified conjunctivitis type; Mixed hyperlipidemia; Primary hypertension; Benign prostatic hyperplasia with urinary frequency; Psoriatic arthropathy; Prediabetes; Other fpc (current) drug therapy; Aphthous ulcer; Right wrist pain; History of wrist fracture; Other gastritis without bleeding 07/11/2025 9:40 AM [employer] Office Visit [address] [phone] Ashlee Orozco FNP Mouth sores (Primary Dx); Positive CHANCE (antinuclear antibody); Psoriatic arthropathy; Family history of colon cancer 06/26/2025 9:20 AM [employer] Office Visit [address] [phone] Ashlee Orozco FNP Thrush (Primary Dx); Oral abscess; Diverticulosis 06/15/2025 Orders Only [address] [phone] Pierre Estrada MD 06/15/2025 Orders Only [address] [phone] Ashlee Orozco FNP 06/14/[address] [place] [phone] Pierre Estrada MD 06/14/[address] [phone] Fiorella Panchal FNP Acute non-recurrent pansinusitis 06/13/2025 Orders Only [address] [phone] Pierre Estrada MD 06/13/2025 Results Follow-Up [address] [phone] Cassandra Orosco, RICARDO HELICOBACTER PYLORI ANTIGEN, STOOL, STOOL CULTURE W/SHIGA TOXIN, CT ABDOMEN PELVIS W CONTRAST 06/12/2025 9:27 AM CDT - 06/12/2025 11:59 PM CDT Hospital Encounter [facility] CT Scan [place] [address] [place] [phone] Ashlee Orozco FNP Discharge Disposition: Home or Self Care 06/05/2025 8:20 AM CDT Office Visit [address] [phone] Ashlee Orozco FNP Chronic diarrhea (Primary Dx); Diverticulosis; Diverticulitis 06/05/2025 External Device Data [facility] ABSTRACTION Provider, Abstract 06/05/[address] [phone] Ashlee Orozco FNP Results 05/01/2025 External Device Data [facility] ABSTRACTION Provider, Abstract from Last 3 Months Immunizations Immunization Administration Dates Next Due (ADACEL/BOOSTRIX)(10 YR UP) TDAP VACCINE, 0.5ML, IM 05/06/2020 (AREXVY)(60 YR UP) RSV, BELLE MBINANT, PROTEIN SUBUNIT RSVPREF, ADJUVANT RECONSTITUTED, 0.5 ML, PF 04/27/2023 (Moderna Bivalent)(6 Mos Up) COVID-19 Vaccine - Emergency Use Authorization, MRNA(Pf) 50 Mcg/0.5 Ml Im Susp 05/05/2022 (PNEUMOVAX 23)(50 YRS UP) PN EUMOCOCCAL POLYSACCHARIDE (PPV23) 0.5 ML, IM 10/11/2014 (SHINGRIX)(50 YRS UP) ZOSTER VACCINE RECOMBINANT, 0.5 ML, IM 08/03/2024,05/10/2024 (SPIKEVAX) (12 YRS UP PRIMAR Y SERIES) COVID-19 VACCINE - MRNA-1273(PF) 100 MCG/0.5 ML IM SUSP 04/27/2025,11/05/2021,10/22/2020,09/20 (SPIKEVAX)(12YR UP) COVID-19 VACCINE, MRNA (PF)50 MCG/0.5 ML, IM SYRINGE 05/01/2024,05/25/2023 INFLUENZA VACCINE HIGH DOSE QUADRIVALENT 65 YR UP PF IM 05/01/2024,04/27/2023,05/05/2022,05/07,05/14/2020 INFLUENZA VACCINE QUADRIVALE NT 3 YR UP PF IM 04/20/2014 INFLUENZA VACCINE TRIVALENT SPLIT VIRUS, (6 MOS UP), 0.5ML (PF), IM 04/03/2025 Influenza Seasonal Unspecifi ed Formulation IM 05/31/2016 Influenza Vaccine High Dose 65+ Yrs IM 1 ,04/08/2018,05/21/2017,06/14 Influenza Vaccine Split 3+ Yrs IM 08/01/2013 Family History Medical History Relation Name Comments Diabetes Brother 1 Seizures Brother 2 Heart Attack Father Jazminmaria d Valadezrus Heart Disease Father Jazminmaria d Valadezrus Hypertension Father Jazmin Valadezrus Arthritis-rheumatoid Mother Suyapachris Valadezrus Kidney Disease Mother Suyapachris Valadezrus Macular Degen Mother Suyapachris Valadezrus Heart Disease Paternal Grandfather John Valadezrus Hypertension Paternal Grandfather John Hartmanns Other Paternal Grandfather John Archer Unknown Paternal Grandfather John Archer glaucom a Colon Cancer Paternal Grandmother Jen Archer Diabetes Neg Hx Relation Name Status Comments Brother 1 Alive Brother 2 Alive Father Jazmin Archer Mother Suyapa Archer Paternal Grandfather John Archer Paternal Grandmother Jen Archer Social History Tobacco Use Types Packs/Day Years Used Date Smoking Tobacco: Former Cigarettes 0.5 43 1 967 - 08/16/2009 Smokeless Tobacco: Never Tobacco Cessation:Counseling Given: Not Answered Comments:SMOKED 10-12 YRS Alcohol Use Standard Drinks/Week Comments Never 0 (1 standard drink = 0.6 oz pur e alcohol) Social Connections Answer Date Recorded In a typical week, how many times do you talk on the phone with family, friends, or neighbors? Once a week 06/26/2020 How often do you get together with friends or re latives? Never 06/26/2020 How often do you attend worship or druze serv ices? Never 06/26/2020 Do you belong to any clubs o r organizations such as worship groups, unions, fraternal or athletic groups, or school groups? Yes 06/26/2020 Attends Club or Organization Meetings Not on mateus e 06/26/2020 Marital Status Not on file 06/26/2020 Financial Resource Strain Answer Date R ecorded How hard is it for you to pa y for the very basics like food, housing, medical care, and heating? Not hard at all 07/13/2022 Food Insecurity Answer Date Recorded In the past 12 months, have you worried that your food would run out before you had money to buy more? Never true 07/13/2022 In the past 12 months, did y ou run out of food and didn't have money to buy more? Never true 07/13/2022 Transportation Needs Answer Date Record ed In the past 12 months, has l ack of transportation kept you from medical appointments or from getting medications? No 07/13/2022 Lack of Transportation (Non-Medical) Not on file 07/13/2022 Food Insecurity Answer Date Recorded Do you find you are eating l ess than you should because you can t pay for food? No 07/20/2025 Transportation Needs Answer Date Record ed Have you gone without health care because you didn t have a way to get there? Or worry about transportation for future doctor visits, flower picker medication, etc.? No 2024 Housing Stability Answer Date Recorded Do you worry you won t have a steady place to sleep or struggle to pay rent or mortgage? No 07/20/2025 Utility Needs Answer Date Recorded Do you have difficulty payin g for utility costs (electric, water or gas bills)? No 07/20/2025 Medication Needs Answer Date Recorded Have you skipped taking medi cation due to cost or worry you can t afford new medications? No 07/20/2025 Feeling Safe Answer Date Recorded Are you in a relationship wi th someone who hurts you emotionally and/or physically? No 07/20/2025 Food Insecurity Answer Date Recorded Patient needs follow up regardin 07/20/2025 Transportation Needs Answer Date Record ed Patient needs follow up regardin 07/20/2025 Utility Needs Answer Date Recorded Patient needs follow up regardin 07/20/2025 Sex and Gender Information Value Date Recorded Sex Assigned at Not on file Legal Sex Male 1:48 AM [employer] Gender Identity Not on file Sexual Orientation Not on file Last Filed Vital Signs Vital Sign Reading Time Taken Comments Blood Pressure 130/80 07/23/2025 10:46 AM [employer]ER Pulse 105 07/23/2025 10:46 AM [employer] Temperature 36.4 C (97.5 F) 07/23/2025 10:46 AM [employer]ER Respiratory Rate 25 07/23/2025 10:4 6 AM [employer]ER Oxygen Saturation 100% 07/23/2025 10: 46 AM [employer]ER Inhaled Oxygen Concentration - - Weight 80.2 kg (176 lb 14.2 oz) 025 10:46 AM [employer]ER Height 170.2 cm (5' 7 ) 07/23/2025 10:4 6 AM [employer]ER Body Mass Index 27.7 07/23/2025 10:46 AM [employer]AL [employer]ER Plan of Treatment Upcoming Encounters Date Type Department Care Team (Late st Contact Info) Description 08/29/2025 9:00 AM [employer]ER Office Visit [facility] Rheumatology- Chapin Zimmer [address] [place] [address] Claudia Clements PA [address] [facility] [address] [place] [address] 08/30/2025 10:20 AM [employer] Office Visit [facility] [address] [place] [phone] Pierre Estrada MD [address] [place] [phone] 07/18/2026 8:00 AM [employer] Office Visit [facility] [address] [place] [address] Pierre Estrada MD [address] [place] [address] Health Maintenance Due Date Last Done Comments PNEUMOCOCCAL VACCINE 50+ YEA RS (2 of 2 - PCV) 10/11/2015 10/11/2014 COVID-19 Vaccine (9 - Modern a risk ) 10/25/2025 04/27/2025, 05/01/2024, 05/25/2023, Additional history exists COLORECTAL SCREENING 12/18/2025 12/18/2020, 12/18/2020, 12/18/2020, Additional history exists Traditional Medicare (ACO) A nnual Wellness Visit 07/18/2026 07/17/2025, 07/17/2024, 07/15/2023, Additional history exists DTAP/TDAP/TD VACCINES (2 - T d or Tdap) 05/06/2030 05/06/2020 RSV VACCINE (60+ or ) Completed 04/27/2023 ZOSTER VACCINE Completed 08/03/2024, 05/10/2024 INFLUENZA VACCINE Completed 04/03/2025, , 04/27/2023, Additional history exists Procedures Procedure Name Priority Date/Time Associated Diagnosis Comments PSA Routine 07/23/2025 11:17 AM [employer]ER Benign prostatic hyperplasia with urinary frequency COMPREHENSIVE METABOLIC PANEL Routine 07/21/2025 5:21 AM [employer]ER CBC WITH DIFFERENTIAL Routine 07/21/2025 5:21 AM [employer]ER URINE CULTURE Routine 07/20/2025 2:15 PM [employer]ER XR WRIST 3+ VW RIGHT Routine 07/18/2025 9:47 AM [employer]ER Right wrist pain History of wrist fracture CALPROTECTIN, FECAL Routine 07/18/2025 9 :29 AM [employer]ER Hematochezia URINALYSIS W/REFLEX MICROSCOPIC Routine 07/17/2025 10:04 AM [employer]ER Abnormal weight loss Primary hypertension C-REACTIVE PROTEIN Routine 07/17/2025 9: 39 AM [employer]ER Abnormal weight loss COMPREHENSIVE METABOLIC PANEL Routine 07/17/2025 9:39 AM [employer] Abnormal weight loss Mixed hyperlipidemia Primary hypertension TSH Routine 07/17/2025 9:39 AM [employer]ER Abnormal weight loss Primary hypertension HEMOGLOBIN A1C Routine 07/17/2025 9:39 AM [employer]ER Prediabetes VITAMIN D 25 HYDROXY Routine 07/17/2025 9:39 AM [employer]ER Other activity aide (current) drug therapy VITAMIN B12 LEVEL Routine 07/17/2025 9:3 9 AM [employer]ER Other activity aide (current) drug therapy ALPHA-GAL PANEL Routine 07/17/2025 9:39 AM [employer]ER Hematochezia Change in bowel habits Abnormal weight loss Other gastritis without bleeding CBC WITH DIFFERENTIAL Routine 07/17/2025 9:39 AM [employer]ER Hematochezia Abnormal weight loss Mixed hyperlipidemia Primary hypertension CT ABDOMEN PELVIS W CONTRAST Routine 06/12/2025 10:45 AM CDT Chronic diarrhea Diverticulosis Diverticulitis CREATININE Stat 06/12/2025 9:38 AM CDT HELICOBACTER PYLORI ANTIGEN, STOOL Routine 06/06/2025 9:33 AM CDT Chronic diarrhea STOOL CULTURE W/SHIGA TOXIN Routine 06/06/2025 9:33 AM CDT Chronic diarrhea ENDOSCOPY, COLON, DIAGNOSTIC 12/18/2020 12:00 AM CDT from Last 3 Months or Most Recently Relevant to Health Maintenance Results * PSA (07/23/2025 11:17 AM [employer]IV[employer]AL [employer]ER) Pathologist [facility] PSA 1.29 < OR = 4.00 ng/mL [facility] Comment: The total PSA value from this assay system is standardized against the WHO standard. The test result will be approximately 20% lower when compared to the equimolar-standardized total PSA (Ildefonso Livingston). Comparison of serial PSA results should be interpreted with this fact in mind. This test was performed using the Siemens chemiluminescent method. Values obtained from different assay methods cannot be used interchangeably. PSA levels, regardless of value, should not be interpreted as absolute evidence of the presence or absence of disease. Test Performed at: [facility] [address] [place] [address] Bandar Jorge MD Blood 07/23/2025 11:1 7 AM [employer]AL [employer]ER 07/24/2025 3:25 AM [employer]ER Fiorella Panchal [facility] CHEMISTRY ORDERABLES Fin al Result [facility] [phone] [facility] [address] * (ABNORMAL) CBC WITH DIFFERENTIAL (07/21/2025 5:21 AM [employer]IV[employer]AL B[employer]ER) Only the most recent of2 resultswithin the time period is included. Pathologist [facility] WBC 8.3 4.2 - 9.1 K/uL 07/21/2025 5:28 AM [facility] RBC 3.39(L) 4.63 - 6.08 M/uL 07/21/2025 5:28 AM [facility]ER [facility] HEMOGLOBIN 9.9(L) 13.7 - 17.5 g/dL 07/21/2025 5:28 AM [facility] HEMATOCRIT 29.4(L) 40.1 - 51.0 % 07/21/2025 5:28 AM [facility] MCV 86.7 79.0 - 92.2 fL 07/21/2025 5:28 AM [facility] MCH 29.2 25.7 - 32.2 pg 07/21/2025 5:28 AM [facility] MCHC 33.7 32.3 - 36.5 g/dL 07/21/2025 5:28 AM [facility] RDW 13.6 11.0 - 14.5 % 07/21/2025 5:28 AM [facility] RDW-STDEV 42.4 36.9 - 56.9 fL 07/21/2025 5:28 AM [facility] PLATELETS 309 130 - 400 K/uL 07/21/2025 5:28 AM [facility] MPV 7.8(L) 10.0 - 14.8 fL 07/21/2025 5:28 AM [facility] NEUTROPHILS 70(H) 34 - 68 % 07/21/2025 5:28 AM [facility] LYMPHOCYTES 15(L) 22 - 53 % 07/21/2025 5:28 AM [facility] MONOCYTES 13(H) 5 - 12 % 07/21/2025 5:28 AM [facility] EOSINOPHILS 1 1 - 7 % 07/21/2025 5:28 AM [facility] BASOPHILS 1 0 - 1 % 07/21/2025 5:28 AM [facility] IMMATURE GRANULOCYTES 1 % 07/21/2025 5:28 AM [facility] NEUTROPHIL ABSOLUTE 5.74(H) 1.78 - 5.38 K/uL 07/21/2025 5:28 AM [facility] LYMPHOCYTE ABSOLUTE 1.22 1.20 - 3.40 K/uL 07/21/2025 5:28 AM [facility] MONOCYTE ABSOLUTE 1.09(H) 0.30 - 0.82 K/uL 07/21/2025 5:28 AM [facility] EOSINOPHIL ABSOLUTE 0.11 0.04 - 0.54 K/uL 07/21/2025 5:28 AM [facility] BASOPHILS ABSOLUTE 0.05 0.01 - 0.08 K/uL 07/21/2025 5:28 AM [facility] IMMATURE GRANULOCYTES ABSOLUTE 0.04 K/uL 07/21/2025 5:28 AM [facility] Blood BLOOD SPECIMEN / Unknown Venipuncture / Unknown 07/21/2025 5:21 AM [employer]AL [employer]ER 07/21/2025 5:26 AM [facility] us Kathleen Nascimento FIELD SCOUT HEMATOLOGY ORDERABLES F inal Result [facility] CLIA # [id number] [address] [place] [id number] * (ABNORMAL) COMPREHENSIVE METABOLIC PANEL (07/21/2025 5:21 AM [employer]IV[employer]AL B[employer]ER) Only the most recent of2 resultswithin the time period is included. SODIUM 134(L) 136 - 145 mmol/L 07/21/2025 5:44 AM [facility] POTASSIUM 3.3(L) 3.5 - 5.1 mmol/L 07/21/2025 5:44 AM [facility] CHLORIDE 100 98 - 107 mmol/L 07/21/2025 5:44 AM [facility] CO2 23 22 - 29 mmol/L 07/21/2025 5:44 AM [facility] CALCIUM 8.5(L) 8.8 - 10.2 mg/dL 07/21/2025 5:44 AM [facility] BUN 11 8 - 23 mg/dL 07/21/2025 5:44 AM [facility] CREATININE 0.52(L) 0.67 - 1.17 mg/dL 07/21/2025 5:44 AM [facility] Comment:The GFR result is no t clinically significant on patients <18 or >70 years of age. GLUCOSE 132(H) 74 - 99 mg/dL 07/21/2025 5:44 AM [facility] TOTAL PROTEIN 5.9(L) 6.6 - 8.7 g/dL 07/21/2025 5:44 AM [facility] ALBUMIN 2.8(L) 3.5 - 5.2 g/dL 07/21/2025 5:44 AM [facility] BILIRUBIN TOTAL 0.6 0.0 - 1.2 mg/dL 07/21/2025 5:44 AM [facility] ALKALINE PHOSPHATASE 96 40 - 129 U/L 07/21/2025 5:44 AM [facility] AST 15 0 - 50 U/L 07/21/2025 5:44 AM [facility] ALT 10 0 - 50 U/L 07/21/2025 5:44 AM [facility] GFR >60 mL/min/1.7 3 sq meter 07/21/2025 5:44 AM [facility] Comment:eGFR calculated with 2020 CKD-EPI equation. Vegetarian diet, extremely high or low muscle mass, and may affect results. Cystatin C with Glomerular Filtration Rate is a suitable alternative for these patients. ANION GAP 11 5 - 20 mmol/L 07/21/2025 5:44 AM [facility] Blood BLOOD SPECIMEN / Unknown Venipuncture / Unknown 07/21/2025 5:21 AM [facility] 07/21/2025 5:26 AM [facility]ER Kathleen Nascimento APRN CHEMISTRY ORDERABLES Fi nal Result [facility] CLIA # [id number] [address] [place] [address] * URINE CULTURE (07/20/2025 2:15 PM UNIVERSAL BANKER) CULTURE No growth 07/22/2025 12:29 PM UNIVERSAL BANKER [facility] Urine URINE SPECIMEN OBTAINED BY CLEAN CATCH PROCEDURE / Unknown Collection / Unknown 07/20/2025 2:15 PM [employer]IVERSAL BANKER 07/20/2025 2:21 PM [employer]AL [employer]ER Kathleen Carla Nascimento APRN MICROBIOLOGY - GENERAL ORDERABLES Final Result [facility] MADDIE # [id number] [address] [facility] [place] [address] * XR WRIST 3+ VW RIGHT (07/18/2025 9:47 AM UNIVERSAL BANKER) Anatomical Region Laterality Modality Wrist / Hand Computed Radiogr aphy 07/18/2025 9:47 AM UNIVERSAL BANKER Impressions 07/18/2025 10:16 AM UNIVERSAL BANKER IMPRESSION: See below. Exam: XR WRIST 3+ VW RIGHT Date/Time of Exam: 07/18/2025 9:47 AM Reason For Exam: See Diagnosis. Diagnosis: Right wrist pain; History of wrist fracture. Prior: None Findings: No acute fracture. 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 Moderate widening of the scapholunate interval suggestive of scapholunate ligament injury. Moderate first CMC and triscaphe degenerative change. Joint bodies are seen within the TFCC. Mild positive ulnar variance. 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 Narrative Procedure Note Kyrie Holt, DO - 07/18/2025 IMPRESSION: See below. Exam: XR WRIST 3+ VW RIGHT Date/Time of Exam: 07/18/2025 9:47 AM Reason For Exam: See Diagnosis. Diagnosis: Right wrist pain; History of wrist fracture. Prior: None Findings: No acute fracture. 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 Moderate widening of the scapholunate interval suggestive of scapholunate ligament injury. Moderate first CMC and triscaphe degenerative change. Joint bodies are seen within the TFCC. Mild positive ulnar variance. 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 Pierre Estrada MD DIAGNOSTIC IMAGING ORDERA BLES Final Result * (ABNORMAL) CALPROTECTIN, FECAL (07/18/2025 9:29 AM UNIVERSAL BANKER) CALPROTECTIN, FECAL >8000(H) mcg/g [facility], Comment: Reference Range: <50 Normal 50-120 Borderline >120 Elevated Calprotectin in Crohn's disease and ulcerative colitis can be five to several thousand times above the reference population (50 mcg/g or less). Levels are usually 50 mcg/g or less in healthy patients and with irritable bowel syndrome. Repeat testing in 4-6 weeks is suggested for borderline values. Test Performed at: [employer] [facility], [address] [place] [address] Graciela Willams MD,PhD,NICO Stool STOOL SPECIMEN / Unknown 07/18/2025 9:29 AM UNIVERSAL BANKER 07/19/2025 3:08 AM UNIVERSAL BANKER Pierre Estrada MD BODY FLUIDS AND STOOLS Fi nal Result [facility] [phone] [facility], [address] [place] [address] * (ABNORMAL) URINALYSIS WITH REFLEX MICROSCOPIC (07/17/2025 10:04 AM UNIVERSAL BANKER) COLOR UA DARK YELLOW YELLOW [facility] CLARITY UA CLEAR CLEAR [facility] SPECIFIC GRAVITY UA 1.032 1.001 - 1.035 [facility] PH UA 5.5 5.0 - 8.0 [facility] GLUCOSE UA NEGATIVE NEGATIVE [facility] BILIRUBIN UA NEGATIVE NEGATIVE [facility] KETONES UA TRACE(A) NEGATIVE [facility] BLOOD UA 1+(A) NEGATIVE [facility] PROTEIN UA 1+(A) NEGATIVE [facility] NITRITE UA NEGATIVE NEGATIVE [facility] LEUKOCYTE ESTERASE UA TRACE(A) NEGATIVE [facility] WBC UA 10-20(A) < OR = 5 /HPF [facility] RBC UA 3-10(A) < OR = 2 /HPF [facility] EPITHELIAL CELLS, URINE 0-5 < OR = 5 /HPF [facility] BACTERIA UA NONE SEEN NONE SEEN /HPF [facility] CA OXALATE CRYSTAL MODERATE(A) NONE OR FEW /HPF [facility] HYALINE CAST 6-10(A) NONE SEEN /LPF [facility] URINE NOTE [facility] Comment: This urine was analyzed for the presence of WBC, RBC, bacteria, casts, and other formed elements. Only those elements seen were reported. Test Performed at: [facility] [address] [place] [address] Bandar Jorge MD Urine URINE SPECIMEN OBTAINED BY CLEAN CATCH PROCEDURE / Unknown 07/17/2025 10:04 AM UNIVERSAL BANKER 07/18/2025 5:25 AM UNIVERSAL BANKER Pierre Estrada MD URINE ORDERABLES Final Re sult [facility] [phone] [facility] [address] [place] [address] * (ABNORMAL) ALPHA-GAL PANEL (07/17/2025 9:39 AM UNIVERSAL BANKER) ALLERGEN BEEF 2.70(H) kU/L [facility], ALLERGEN BEEF (F27) CLASS 2 [facility], [place]OW[place] (F88) IGE 1.55(H) kU/L [facility], ALLERGEN [place] (F88) CLASS 2 [facility], ALLERGEN PORK 1.51(H) kU/L [facility]/N [facility], ALLERGEN PORK (F26) CLASS 2 [facility], GALACTOSE - ALPHA -1, 3 - GALACTOSE, IGE 4.79(H) <0.10 kU/L [facility], Comment: Results above 0.1 kU/L indicate an allergen-specific IgE sensitization to plqxecpnd-q-5,3-galactose, and such patients are at risk for delayed allergic reactions following beef, pork, or snowden consumption. Circulating IgE antibodies may remain undetectable despite a convincing clinical history because these antibodies may be directed towards allergens revealed or altered during industrial processing, cooking, or digestion and therefore do not exist in the original food for which the patient is tested. Sometimes individuals diagnosed with chronic urticaria may develop IgE antibodies directed against human thyroglobulin. Such antibodies may cross-react with the bovine thyroglobulin used in ImmunoCAP(R) Allergen o215, alpha-Gal, leading to a false-positive test result. A definitive diagnosis should be based on the evaluation of both clinical and laboratory findings and not on any single diagnostic method. Additional information can be found at http://[email or web address].[email or web address]-BBB ALLERGY PANEL INTERP [facility], Comment: Specific Level of Allergen IGE Class kU/L Specific IGE Antibody ----- --------- 0 <0.10 Absent/Undetectable 0/1 0.10-0.34 Very Low Level 1 0.35-0.69 Low Level 2 0.70-3.49 Moderate Level 3 3.50-17.4 High Level 4 17.5-49.9 Very High Level 5 50-100 Very High Level 6 >100 Very High Level The clinical relevance of allergen results of 0.10-0.34 kU/L are undetermined and intended for specialist use. Allergens denoted with a include results using one or more analyte specific reagents. In those cases, the test was developed and its analytical performance characteristics have been determined by [facility]. It has not been cleared or approved by the U.S. Food and Drug Administration. This assay has been validated pursuant to the CLIA regulations and is used for clinical purposes. Test Performed at: [facility], [address] [place] [address] Graciela Willams MD,PhD,NICO [place] Blood 07/17/2025 9:39 AM UNIVERSAL BANKER 07/18/2025 3:37 AM UNIVERSAL BANKER Pierre Estrada MD CHEMISTRY ORDERABLES Gloria l Result [facility] [phone] [facility], [address] [place] [address] * (ABNORMAL) VITAMIN D 25 HYDROXY (07/17/2025 9:39 AM UNIVERSAL BANKER) VITAMIN D, 25 OH, TOTAL 14(L) 30 - 100 ng/mL [facility] Comment: Vitamin D Status 25-OH Vitamin D: Deficiency: <20 ng/mL Insufficiency: 20 - 29 ng/mL Optimal: > or = 30 ng/mL For 25-OH Vitamin D testing on patients on D2-supplementation and patients for whom quantitation of D2 and D3 fractions is required, the QuestAssureD(TM) 25-OH VIT D, (D2,D3), LC/MS/MS is recommended: order code 24076 (patients >2yrs). See Note 1 Note 1 For additional information, please refer to http://education.[employer]/faq/XRN136 (This link is being provided for informational/ educational purposes only.) Test Performed at: [facility] [address] [place] [address] Bandar Joreg MD Blood 07/17/2025 9:39 AM UNIVERSAL BANKER 07/18/2025 3:37 AM UNIVERSAL BANKER Pierre Estrada MD CHEMISTRY ORDERABLES Gloria l Result [facility] [phone] [facility] [address] [place] [address] * (ABNORMAL) C-REACTIVE PROTEIN (07/17/2025 9:39 AM UNIVERSAL BANKER) CRP 111.0(H) <8.0 mg/L [facility] Comment: Test Performed at: [facility] [address] Bandar oJrge MD Blood 07/17/2025 9:39 AM UNIVERSAL BANKER 07/18/2025 3:37 AM UNIVERSAL BANKER Pierre Estrada MD CHEMISTRY ORDERABLES Gloria l Result Performing Organization Address City/[facility]/ZIP Co de Phone Number [facility] [phone] [facility] [address] [address] * TSH (07/17/2025 9:39 AM UNIVERSAL BANKER) Pathologist [facility] TSH 1.15 0.40 - 4.50 mIU/L [facility] Comment: Test Performed at: [facility] [address] Bandar Jorge MD Blood 07/17/2025 9:39 AM UNIVERSAL BANKER 07/18/2025 3:37 AM UNIVERSAL BANKER Pierre Estrada MD CHEMISTRY ORDERABLES Gloria l Result Performing Organization Address [facility] Co de Phone Number [facility] [phone] [address] * (ABNORMAL) HEMOGLOBIN A1C (07/17/2025 9:39 AM UNIVERSAL BANKER) HEMOGLOBIN A1C 6.1(H) <5.7 % [facility] Comment: For someone without known diabetes, a hemoglobin A1c value between 5.7% and 6.4% is consistent with prediabetes and should be confirmed with a follow-up test. For someone with known diabetes, a value <7% indicates that their diabetes is well controlled. A1c targets should be individualized based on duration of diabetes, age, comorbid conditions, and other considerations. This assay result is consistent with an increased risk of diabetes. Currently, no consensus exists regarding use of hemoglobin A1c for diagnosis of diabetes for children. ESTIMATED AVERAGE GLUCOSE (MG/DL) 128 mg/dL [facility] ESTIMATED AVERAGE GLUCOSE (MMOL/L) 7.1 mmol/L [facility] Comment: Test Performed at: [facility] [address] [place] [address] Bandar Jorge MD Blood 07/17/2025 9:39 AM UNIVERSAL BANKER 07/18/2025 3:37 AM UNIVERSAL BANKER Pierre Estrada MD CHEMISTRY ORDERABLES Gloria l Result Performing Organization Address [facility]/ZIP Co de Phone Number [facility] [phone] [facility] [address] [place] [address] * (ABNORMAL) VITAMIN B12 LEVEL (07/17/2025 9:39 AM UNIVERSAL BANKER) [facility] VITAMIN B12 1558(H) 200 - 1100 pg/mL [facility] Comment: Test Performed at: [facility] [address] [facility] [place] [address] Bandar Jorge MD Blood 07/17/2025 9:39 AM UNIVERSAL BANKER 07/18/2025 3:37 AM UNIVERSAL BANKER Pierre Estrada MD CHEMISTRY ORDERABLES Gloria l Result Performing Organization Address City/[facility] Co de Phone Number [facility] [phone] [facility] [address] [place], [place] [address] [address] * CT ABDOMEN PELVIS W CONTRAST (06/12/2025 10:45 AM CDT) Anatomical Region Laterality Modality Abdomen Computed Tomogra phy 06/12/2025 10:2 7 AM CDT Impressions 06/12/2025 12:04 PM CDT IMPRESSION: 1. Diverticulitis involving the sigmoid colon. 2. Bilateral nephrolithiasis. Narrative 06/12/2025 12:04 PM CDT Exam: CT ABDOMEN PELVIS W CONTRAST Date/Time of Exam: 06/12/2025 10:45 AM Reason For Exam: Diverticulitis, complication suspected. Contiguous axial images were obtained through the abdomen and pelvis. Sagittal and coronal reformatted images are included. 70 mL of Isovue-300 was given intravenously. Numerous diverticula are present in the descending and sigmoid portions of the colon. Focal wall thickening is present in the mid sigmoid colon with mild strandy density and induration present in the surrounding fat consistent with inflammatory changes. There is no evidence of any abdominal aortic aneurysm or dissection. The appendix is visualized and is unremarkable in appearance. There is no evidence of any ureteral stones or any dilatation of the ureters or collecting systems. Multiple calcific densities are present in the renal tc bilaterally consistent with renal stones. The kidneys are of normal size, contour and position. The liver, spleen, pancreas, and adrenals are unremarkable. There is no evidence of abnormal soft tissue masses, abnormal fluid collections or adenopathy in the abdomen or pelvis. Bowel loops are nondilated. There is no evidence of any free intraperitoneal air. Procedure Note Manpreet Merlos MD - 06/12/2025 Exam: CT ABDOMEN PELVIS W CONTRAST Date/Time of Exam: 06/12/2025 10:45 AM Reason For Exam: Diverticulitis, complication suspected. Contiguous axial images were obtained through the abdomen and pelvis. Sagittal and coronal reformatted images are included. 70 mL of Isovue-300 was given intravenously. Numerous diverticula are present in the descending and sigmoid portions of the colon. Focal wall thickening is present in the mid sigmoid colon with mild strandy density and induration present in the surrounding fat consistent with inflammatory changes. There is no evidence of any abdominal aortic aneurysm or dissection. The appendix is visualized and is unremarkable in appearance. There is no evidence of any ureteral stones or any dilatation of the ureters or collecting systems. Multiple calcific densities are present in the renal tc bilaterally consistent with renal stones. The kidneys are of normal size, contour and position. The liver, spleen, pancreas, and adrenals are unremarkable. There is no evidence of abnormal soft tissue masses, abnormal fluid collections or adenopathy in the abdomen or pelvis. Bowel loops are nondilated. There is no evidence of any free intraperitoneal air. IMPRESSION: 1. Diverticulitis involving the sigmoid colon. 2. Bilateral nephrolithiasis. us Ashlee Orozco [facility] CT ORDERABLES Final Resu lt * (ABNORMAL) CREATININE (06/12/2025 9:38 AM CDT) CREATININE 0.64(L) 0.67 - 1.17 mg/dL 06/12/2025 9:59 AM CDT [facility] Comment:The GFR result is no t clinically significant on patients <18 or >70 years of age. GFR >60 mL/min/1.7 3 sq meter 06/12/2025 9:59 AM CDT [facility] Comment:eGFR calculated with 2020 CKD-EPI equation. Vegetarian diet, extremely high or low muscle mass, and may affect results. Cystatin C with Glomerular Filtration Rate is a suitable alternative for these patients. Blood BLOOD SPECIMEN / Unknown Collection / Unknown 06/12/2025 9:38 AM CDT 06/12/2025 9:45 AM CDT Ashlee Orozco [facility] CHEMISTRY ORDERABLES Final Result [facility] CLIA # [id number] [address] [place] [address] * HELICOBACTER PYLORI ANTIGEN, STOOL (06/06/2025 9:33 AM CDT) H. PYLORI AG, STOOL SEE NOTE [facility] Comment: HELICOBACTER PYLORI AG, EIA, STOOL Micro Number: [id number] Test Status: Final Specimen Source: Stool Specimen Quality: Adequate H.pylori Ag: Not Detected Antimicrobials, proton pump inhibitors, and bismuth preparations inhibit H. pylori and ingestion up to two weeks prior to testing may cause false negative results. If clinically indicated the test should be repeated on a new specimen obtained two weeks after discontinuing treatment. Reference Range: Not Detected Test Performed at: [facility] [address] [place] [address] [facility]Damian [facility] Stool STOOL SPECIMEN / Unknown 06/06/2025 9:33 AM CDT 06/07/2025 3:08 AM CDT Ashlee LOPEZ BODY FLUIDS AND STOOLS Fin al Result Performing Organization Address City/[facility]/ZIP Code Phone Number [facility] [phone] [place] [address] [address] [address] * STOOL CULTURE W/SHIGA TOXIN (06/06/2025 9:33 AM CDT) CAMPY ANTIGEN, EIA SEE NOTE [facility] Comment: CAMPYLOBACTER SPP. AG,EIA Micro Number: [id number] Test Status: Final Specimen Source: Stool Specimen Quality: Adequate Campy Ag Result: Not Detected Reference Range: Not Detected E.COLI SHIGA TOXIN, EIA SEE NOTE [facility] ismael Sorto Comment: SHIGA TOXINS, EIA W/RFL TO E.COLI O157 CULTURE Micro Number: [id number] Test Status: Final Specimen Source: Stool Specimen Quality: Adequate Shiga Toxin: Not Detected Reference Range: Not Detected STOOL CULTURE SEE NOTE [facility] ismael Sorto Comment: SALMONELLA AND SHIGELLA, CULTURE Micro Number: [id number] Test Status: Final Specimen Source: Stool Specimen Quality: Adequate Result: No Salmonella or Shigella isolated Test Performed at: [place] [address] [address] [place] [address] FlorAnnikaYulissa Banerjee Stool STOOL SPECIMEN / Unknown 06/06/2025 9:33 AM CDT 06/07/2025 3:08 AM CDT Result [facility] Ashlee LOPEZ MICROBIOLOGY - GENERAL ORD ERABLES Final Result Performing Organization Address City/[facility]/ZIP Code Phone Number [facility] [phone] [place] [address] [address] [place] [address] * ENDOSCOPY, COLON, DIAGNOSTIC (12/18/2020 12:00 AM CDT) Pierre Estrada MD GI PROCEDURE ORDERABLES E dited Result - Final from Last 3 Months or Most Recently Relevant to Health Maintenance Insurance MEDICARE PART A AND B [facility] Advance Directives For more information, please contact: [phone] * Full Code (Latest Code Status on File) Date Activated Date Inactivated Comments 07/20/2025 12:23 PM 07/21/2025 3:03 PM Care Teams Fairing Worker Relationship Specialty Start Date End Date Pierre Estrada MD [address] [phone] PCP - General Family Practice 04/26/18
--- OUTSIDE RECORDS SUMMARY | 2025-07-31 00:41 | XMS_ITS | Encounter Summary ---
Author Organization [facility] Address [address] [place] [address] Care Team Providers Care Petroleum Supply Specialist Name Role Phone Pierre Estrada MD Primary Care Provider [phone] Encounter Details Date Type Department Care Team (Late st Contact Info) Description 07/24/2025 External Device Data ST[place] ABSTRACTION Provider, Abstract NO ADDRESS ON FILE Social History Tobacco Use Types Packs/Day Years Used Date Smoking Tobacco: Former Cigarettes 0.5 43 1 967 - 08/16/2009 Smokeless Tobacco: Never Comments:SMOKED 10-12 YRS Alcohol Use Standard Drinks/Week [...] Never 06/26/2020 How often do you attend jainism or orthodox serv ices? Never 06/26/2020 Do you belong to any clubs o r organizations such as jainism groups, unions, fraternal or athletic groups, or [...] worry about transportation for future doctor visits, poultry picking machine tender medication, etc.? No 2024 Housing Stability Answer [...] on file Legal Sex Male 1:48 AM PRACTICE MANAGER Gender Identity Not on file Sexual Orientation Not on file documented as of this encounter Plan of Treatment Upcoming Encounters Date Type Department Care Team (Late st Contact Info) Description 08/29/2025 9:00 AM PRACTICE MANAGER Office Visit [facility] RheumatologyAnnika Zimmer [address] [place] [address] Claudia Clements PA [address] [place] [address] 08/30/2025 10:20 AM PRACTICE MANAGER Office Visit [facility] [address] [place] [address] Pierre Estrada MD [address] [place] [address] 07/18/2026 8:00 AM PRACTICE MANAGER Office Visit [facility] [address] [place] [address] Pierre Estrada MD [address] [place] [address] documented as of this encounter Visit Diagnoses Not on filedocumented in this encounter Care Teams Petroleum Supply Specialist Relationship Specialty Start Date End Date Pierre Estrada MD [address] [place] [address] PCP - General Family Practice 04/26/18 documented as of this encounter
--- OUTSIDE RECORDS SUMMARY | 2025-07-31 00:41 | XMS_ITS | Encounter Summary ---
Author Organization [facility] Address [address] [place] [address] Care Team Providers Care Station Tender Name Role Phone Pierre Estrada MD Primary Care Provider +1 [phone] Encounter Details Date Type Department Care Team (Late st Contact Info) Description 07/22/2025 Results Follow-Up [facility] Emergency Medicine [address] [facility] [address] [place] [address] Kathleen Nascimento APRN [address] [facility] [address] [place] [address] URINE CULTURE Social History Tobacco Use Types Packs/Day Years [...] Never 06/26/2020 How often do you attend rastafari or muslim serv ices? Never 06/26/2020 Do you belong to any clubs o r organizations such as rastafari groups, unions, fraternal or athletic groups, or [...] worry about transportation for future doctor visits, greens picker medication, etc.? No 2024 Housing Stability [...] on file Legal Sex Male 1:48 AM BLANKET BINDER Gender Identity Not on file Sexual Orientation Not on file documented as of this encounter Plan of Treatment Upcoming Encounters Date Type Department Care Team (Late st Contact Info) Description 08/29/2025 9:00 AM BLANKET BINDER Office Visit [facility] Rheumatology- Chapin Zimmer [address] [place] [address] Claudia Clements PA [address] [place] [address] 08/30/2025 10:20 AM BLANKET BINDER Office Visit [facility] [address] [address] Pierre Estrada MD [address] [address] 07/18/2026 8:00 AM BLANKET BINDER Office Visit [facility] [address] [place] [address] Pierre Estrada MD [address] [address] documented as of this encounter Visit Diagnoses Not on filedocumented in this encounter Care Teams Station Tender Relationship Specialty Start Date End Date Pierre Estrada MD [address] [address] PCP - General Family Practice 04/26/18 documented as of this encounter
--- OUTSIDE RECORDS SUMMARY | 2025-07-31 00:41 | XMS_ITS | Encounter Summary ---
Author Organization [facility] Address [address] [place] [address] Care Team Providers Care Poultry Sexer Name Role Phone Pierre Jennings MD Primary Care Provider +1 [phone] Reason for Referral * Eval and Treat (Routine) - Authorized Specialty Diagnoses / Procedures Referred By Contac t Referred To Contact Orthopedic Surgery Diagnoses Scapholunate ligament injury with no instability, right, initial encounter Procedures MO OFFICE/OUTPATIENT ESTABLISHED MOD MDM 30 MIN MO OFFICE/OUTPATIENT NEW MODERATE MDM 45 MINUTES Pierre Jennings MD [address] [address] Phone: tel: fax: [facility] [address] [place] [address] Phone: tel: fax: Referral ID Status Reason Start Date Expiration Date V isits Requested Visits Authorized [id number] Authorized 07/25/2025 07/25/2026 1 1 LE PET GROOMER Reason for Visit * Reason Onset Date Comments Results 07/18/2025 Encounter Details Date Type Department Care Team (Late st Contact Info) Description 07/18/2025 Results Follow-Up [facility] Medicine [place] [address] [address] Pierre Jennings MD [address] [address] CBC WITH DIFFERENTIAL, VITAMIN B12 LEVEL, VITAMIN D 25 HYDROXY, Additional followed-up results: 8 Social History Tobacco Use Types Packs/Day Years [...] Never 06/26/2020 How often do you attend confucianism or worship serv ices? Never 06/26/2020 Do you belong to any clubs o r organizations such as confucianism groups, unions, fraternal or athletic groups, or [...] worry about transportation for future doctor visits, pickle pumper medication, etc.? No 2024 Housing Stability Answer [...] on file Legal Sex Male 1:48 AM MOBILE PET GROOMER Gender Identity Not on file Sexual Orientation Not on file documented as of this encounter Miscellaneous Notes * Telephone Encounter - Mary López RN - 07/25/2025 10:56 AM MOBILE PET GROOMER ----- Message from Dr. Pierre Jennings sent at 07/25/2025 10:24 AM MOBILE PET GROOMER ----- Wrist x-ray shows no acute fracture but there is advanced radioscaphoid joint space loss and osteophyte formation and moderate widening of the scapholunate interval suggestive of scapholunate ligament injury. There are also degenerative arthritis changes throughout the hand. Recommend consultation with medical collections specialist. Referral ordered. ----- Message ----- From: Lalo Zuleta asif Incoming Radiology Results Sent: 07/18/2025 10:16 AM MOBILE PET GROOMER To: Pierre Jennings MD LE PET GROOMER * Telephone Encounter - Mary López RN - 07/25/2025 10:55 AM MOBILE PET GROOMER ----- Message from Dr. Pierre Jennings sent at 07/25/2025 10:21 AM MOBILE PET GROOMER ----- Fecal calprotectin is very elevated concerning for inflammatory bowel disease such as Crohn's or ulcerative colitis. Patient has been referred to [facility] previously for colonoscopy which would be required to accurately diagnose this condition. Another option would be going to [place] to a crosscutter rolled glass, but at last visit there were concerns about transportation. ----- Message ----- From: Lalo Zuleta Incoming [facility] Results Sent: 07/24/2025 12:33 AM MOBILE PET GROOMER To: Pierre Jennings MD LE PET GROOMER * Addendum Note - Pierre Jennings MD - 07/25/2025 10:24 AM CSTAddended by: PIERRE JENNINGS on: 07/25/2025 10:24 AM Modules accepted: Orders LE PET GROOMER * Telephone Encounter - Graciela Quijano RN - 07/23/2025 9:31 AM MOBILE PET GROOMER 07/23/2025 9:31 AM No answer. Left voice mail/message that communication regarding results will be sent via US Mail. No need to return call unless specific questions. If patient/caregiver calls back, contact center maytell caller Alpha gal positive, patient should remove all sources of mammal protein from diet including red meat such as beef, pork, snodwen as well as cows milk and gelatin. Patient can safely consume chicken, turkey, fish, and eggs. Hopefully this change in diet will decrease some of his inflammatory symptoms. Graciela MANSFIELD LE PET GROOMER * Telephone Encounter - Graciela Quijano RN - 07/20/2025 1:16 PM MOBILE PET GROOMER 07/20/2025 1:16 PM No answer. Left voice mail/message that communication regarding results can be accessed via [email or web address] . No need to return call unless specific questions. If patient/caregiver calls back, contact center may tell caller Alpha gal positive, patient should remove all sources of mammal protein from diet including red meat such as beef, pork, snowden as well as cows milk and gelatin. Patient can safely consume chicken, turkey, fish, and eggs. Hopefully this change in diet will decrease some of his inflammatory symptoms. Graciela RN LE PET GROOMER * Telephone Encounter - Graciela Quijano RN - 07/20/2025 9:26 AM MOBILE PET GROOMER 07/20/2025 9:26 AM No answer. Left voice mail/message that communication regarding results can be accessed via [email or web address] . No need to return call unless specific questions. If patient/caregiver calls back, contact center may tell caller Alpha gal positive, patient should remove all sources of mammal protein from diet including red meat such as beef, pork, snowden as well as cows milk and gelatin. Patient can safely consume chicken, turkey, fish, and eggs. Hopefully this change in diet will decrease some of his inflammatory symptoms. Graciela RN LE PET GROOMER * Telephone Encounter - Graciela Quijano RN - 07/20/2025 9:25 AM MOBILE PET GROOMER ----- Message from Dr. Pierre Jennings sent at 07/20/2025 7:30 AM MOBILE PET GROOMER ----- Alpha gal positive, patient should remove all sources of mammal protein from diet including red meat such as beef, pork, snowden as well as cows milk and gelatin. Patient can safely consume chicken, turkey, fish, and eggs. Hopefully this change in diet will decrease some of his inflammatory symptoms. ----- Message ----- From: Lalo Zuleta Incoming [facility] Results Sent: 07/18/2025 5:03 AM MOBILE PET GROOMER To: Pierre Jennings MD LE PET GROOMER * Telephone Encounter - Mary López RN - 07/18/2025 1:39 PM MOBILE PET GROOMER 07/18/2025 1:39 PM Called and notified patient of results. Voiced understanding. Mary MANSFIELD LE PET GROOMER * Telephone Encounter - Mary López RN - 07/18/2025 1:39 PM MOBILE PET GROOMER ----- Message from Dr. Pierre Jennings sent at 07/18/2025 11:18 AM MOBILE PET GROOMER ----- Urinalysis shows some red blood cells and crystals, negative for bacteria or infection, blood countshows anemia, normal white blood cells and platelets, concern for blood loss due to recent diverticulitis/bloody diarrhea, A1c is up at 6.1 consistent with prediabetes, CRP significantly elevated consistent with acute inflammatory status likely a psoriatic arthritis flareup, patient should contact his energy trading analyst for follow-up, kidney function looks good, liver enzymes look good, potassium is low, will order potassium supplementation, vitamin D is low, will order vitamin D supplementation, B12 and thyroid look good, stool testing and alpha gal are still pending. ----- Message ----- From: Lalo Zuleta [facility]coming [facility] Results Sent: 07/18/2025 5:03 AM MOBILE PET GROOMER To: Pierre Jennings MD LE PET GROOMER * Telephone Encounter - Mary López RN - 07/18/2025 11:58 AM MOBILE PET GROOMER ----- Message from Dr. Pierre Jennings sent at 07/18/2025 11:18 AM MOBILE PET GROOMER ----- Urinalysis shows some red blood cells and crystals, negative for bacteria or infection, blood countshows anemia, normal white blood cells and platelets, concern for blood loss due to recent diverticulitis/bloody diarrhea, A1c is up at 6.1 consistent with prediabetes, CRP significantly elevated consistent with acute inflammatory status likely a psoriatic arthritis flareup, patient should contact his energy trading analyst for follow-up, kidney function looks good, liver enzymes look good, potassium is low, will order potassium supplementation, vitamin D is low, will order vitamin D supplementation, B12 and thyroid look good, stool testing and alpha gal are still pending. ----- Message ----- From: Lalo Zuleta [facility]coming [facility] Results Sent: 07/18/2025 5:03 AM MOBILE PET GROOMER To: Pierre Jennings MD LE PET GROOMER documented in this encounter Plan of Treatment Upcoming Encounters Date Type Department Care Team (Late st Contact Info) Description 08/29/2025 9:00 AM MOBILE PET GROOMER Office Visit [facility] Rheumatology- Chapin Zimmer [address] [place] [address] Claudia Clements PA [address] [place] [address] 08/30/2025 10:20 AM MOBILE PET GROOMER Office Visit [facility] [address] [address] Pierre Jennings MD [address] [address] 07/18/2026 8:00 AM MOBILE PET GROOMER Office Visit [facility] [address] [address] Pierre Jennings MD [address] [address] Scheduled Referrals Name Type Priority Associated Diagnoses Order Schedule AMB REFERRAL TO ORTHOPEDIC SURGERY Outpatient Referral Routine Scapholunate ligament injury with no instability, right, initial encounter Ordered: 07/25/2025 documented as of this encounter Visit Diagnoses Diagnosis Scapholunate ligament injury with no instability, right, initial encounter- Primary documented in this encounter Care Teams Poultry Sexer Relationship Specialty Start Date End Date Pierre Jennings MD [address] [address] PCP - General Family Practice 04/26/18 documented as of this encounter
--- OUTSIDE RECORDS SUMMARY | 2025-07-31 00:41 | XMS_ITS | Encounter Summary ---
Author Organization [facility] Address [address] [place] [address] Care Team Providers Care Ship Laborer Name Role Phone Pierre Estrada MD Primary Care Provider [phone] [phone] Encounter Details Date Type Department Care Team (Late st Contact Info) Description 07/24/2025 Results Follow-Up [facility] Family Medicine [place] [address] [address] Fiorella Panchal, [facility] [address] [address] PSA Social History Tobacco Use Types Packs/Day Years [...] Never 06/26/2020 How often do you attend lutheran or temple serv ices? Never 06/26/2020 Do you belong to any clubs o r organizations such as lutheran groups, unions, fraternal or athletic groups, or [...] worry about transportation for future doctor visits, garbage pick up worker medication, etc.? No 2024 Housing Stability Answer [...] on file Legal Sex Male 1:48 AM METAL CASKET ASSEMBLER Gender Identity Not on file Sexual Orientation Not on file documented as of this encounter Plan of Treatment Upcoming Encounters Date Type Department Care Team (Late st Contact Info) Description 08/29/2025 9:00 AM METAL CASKET ASSEMBLER [facility] [address] [place] [address] Claudia Clements PA [address] [place] [address] 08/30/2025 10:20 AM METAL CASKET ASSEMBLER Office Visit [facility] [address] [address] Pierre Estrada MD [address] [place] [address] 07/18/2026 8:00 AM METAL CASKET ASSEMBLER Office Visit [facility] [address] [place] [address] Pierre Estrada MD [address] [address] documented as of this encounter Visit Diagnoses Not on filedocumented in this encounter Care Teams Ship Laborer Relationship Specialty Start Date End Date Pierre Estrada MD [address] [address] PCP - General Family Practice 04/26/18 documented as of this encounter
--- OUTSIDE RECORDS SUMMARY | 2025-07-31 00:41 | XMS_ITS | Encounter Summary ---
Author Organization [facility] Address [address] [place] [address] Care Team Providers Care Senior Design Engineering Specialist Name Role Phone Pierre Estrada MD Primary Care Provider [phone] [phone] Encounter Details Date Type Department Care Team [...] Never 06/26/2020 How often do you attend orthodoxy or methodist serv ices? Never 06/26/2020 Do you belong to any clubs o r organizations such as orthodoxy groups, unions, fraternal or athletic groups, or [...] worry about transportation for future doctor visits, citrus picker medication, etc.? No 2024 Housing Stability [...] on file Legal Sex Male 1:48 AM IOS DEVELOPER Gender Identity Not on file Sexual Orientation Not on file documented as of this encounter Plan of Treatment Upcoming Encounters Date Type Department Care Team (Late st Contact Info) Description 08/29/2025 9:00 AM IOS DEVELOPER Office Visit [facility] RheumatologyAnnika Zimmer [address] [place] [address] Claudia Clements PA [address] [place] [address] 08/30/2025 10:20 AM IOS DEVELOPER Office Visit [facility] [address] [place] [address] Pierre Estrada MD [address] [place] [address] 07/18/2026 8:00 AM IOS DEVELOPER Office Visit [facility] [address] [place] [address] Pierre Estrada MD [address] [place] [address] documented as of this encounter Visit Diagnoses Not on filedocumented in this encounter Care Teams Senior Design Engineering Specialist Relationship Specialty Start Date End Date Pierre Estrada MD [address] [place] [address] PCP - General Family Practice 04/26/18 documented as of this encounter
--- OUTSIDE RECORDS SUMMARY | 2025-07-31 00:41 | XMS_ITS | Encounter Summary ---
Author Organization [facility] Address [address] [place] [address] Care Team Providers Care Diver Pumper Name Role Phone Pierre Estrada MD Primary Care Provider [phone] [phone] Encounter Details Date Type Department Care Team [...] Never 06/26/2020 How often do you attend episcopal or temple serv ices? Never 06/26/2020 Do you belong to any clubs o r organizations such as episcopal groups, unions, fraternal or athletic groups, or [...] about transportation for future doctor visits, flower buncher or picker medication, etc.? No 2024 Housing Stability [...] on file Legal Sex Male 1:48 AM CIVIL ENGINEERING DIRECTOR Gender Identity Not on file Sexual Orientation Not on file documented as of this encounter Plan of Treatment Upcoming Encounters Date Type Department Care Team (Late st Contact Info) Description 08/29/2025 9:00 AM CIVIL ENGINEERING DIRECTOR Office Visit [facility] RheumatologyAnnika Zimmer [address] [place] [address] Claudia Clements PA [address] [place] [address] 08/30/2025 10:20 AM CIVIL ENGINEERING DIRECTOR Office Visit [facility] [address] [place] [address] Pierre Estrada MD [address] [place] [address] 07/18/2026 8:00 AM CIVIL ENGINEERING DIRECTOR Office Visit [facility] [address] [place] [address] Pierre Estrada MD [address] [place] [address] documented as of this encounter Visit Diagnoses Not on filedocumented in this encounter Care Teams Diver Pumper Relationship Specialty Start Date End Date Pierre Estrada MD [address] [place] [address] PCP - General Family Practice 04/26/18 documented as of this encounter
--- OUTSIDE RECORDS SUMMARY | 2025-07-31 00:41 | XMS_ITS | Encounter Summary ---
Author Organization [facility] Address [address] [place] [address] Care Team Providers Care Thermal Surfacing Machine Operator Name Role Phone Pierre Estrada MD Primary Care Provider +1 [phone] Reason for Visit * Reason Onset Date Comments Medication Refill 07/23/2025 Encounter Details Date Type Department Care Team (Late st Contact Info) Description 07/23/2025 Refill [facility] Rheumatology- [facility] [address] [place] [address] Claudia Clements PA [address] [place] [address] Psoriatic arthropathy ([facility]) Social History Tobacco Use Types Packs/Day Years [...] Never 06/26/2020 How often do you attend faith or tenriism serv ices? Never 06/26/2020 Do you belong to any clubs o r organizations such as faith groups, unions, fraternal or athletic groups, or [...] about transportation for future doctor visits, pickle processor medication, etc.? No 2024 Housing Stability Answer [...] on file Legal Sex Male 1:48 AM COMMUNITY DEVELOPMENT PLANNER Gender Identity Not on file Sexual Orientation Not on file documented as of this encounter Miscellaneous Notes * Telephone Encounter - Jennifer Tom CNA - 07/23/2025 3:13 PM CST Last ov 08/30/24 UNITY DEVELOPMENT PLANNER documented in this encounter Plan of Treatment Upcoming Encounters Date Type Department Care Team (Late st Contact Info) Description 08/29/2025 9:00 AM COMMUNITY DEVELOPMENT PLANNER Office Visit [facility] Rheumatology- Chapin Zimmer [address] [place] [address] Claudia Clements PA [address] [place] [address] 08/30/2025 10:20 AM COMMUNITY DEVELOPMENT PLANNER Office Visit [facility] [address] [place] [address] Pierre Estrada MD [address] [place] [address] 07/18/2026 8:00 AM COMMUNITY DEVELOPMENT PLANNER Office Visit [facility] [address] [place] [address] Pierre Estrada MD [address] [place] [address] documented as of this encounter Visit Diagnoses Diagnosis Psoriatic arthropathy ([facility]) Psoriatic arthropathy documented in this encounter Care Teams Thermal Surfacing Machine Operator Relationship Specialty Start Date End Date Pierre Estrada MD [address] [place] [address] PCP - General Family Practice 04/26/18 documented as of this encounter
--- OUTSIDE RECORDS SUMMARY | 2025-07-31 00:41 | XMS_ITS | Encounter Summary ---
Author Organization [facility] Address [address] [place] [address] Care Team Providers Care Wellness Rn Name Role Phone Pierre Estrada MD Primary Care Provider [phone] [phone] Reason for Visit * Reason Comments Patient Communication Encounter Details Date Type Department Care Team ([facility] st Contact Info) Description 07/30/2025 Telephone [facility] Family Medicine [address] [address] Pierre Estrada MD [address] [address] Patient Communication Social History Tobacco Use Types Packs/Day Years [...] Never 06/26/2020 How often do you attend congregational or zoroastrian serv ices? Never 06/26/2020 Do you belong to any clubs o r organizations such as congregational groups, unions, fraternal or athletic groups, or [...] worry about transportation for future doctor visits, medicinal plant picker medication, etc.? No 2024 Housing Stability [...] on file Legal Sex Male 1:48 AM HEALTH PSYCHOLOGIST Gender Identity Not on file Sexual Orientation Not on file documented as of this encounter Miscellaneous Notes * Telephone Encounter - Leyda Malone - 07/30/2025 4:59 PM CST Copied from CRM #[id number]. Topic: Patient or Caregiver Communication Request >> Jul 30, 2025 4:56 PM Leyda Aguirre wrote: Caller Name: swati Ng Callback Number: [phone] (home) Call Notes: Farrah just wanted to report that Jaden went to the hospital this morning and they put in a urinary catheter. He is scheduled for colonoscopy in the am. He is having orange/red tint to hisurine. She declined to speak to [facility] and said she would call the ER after hanging up with me. She said she is struggling to take care of him because of the colon prep at the same time as the urinary catheter. Is the patient reporting any new or worsening symptoms? Yes Void this CRM and select Symptoms in the Scheduling/Established Patient Visit Reason for Contact. TH PSYCHOLOGIST documented in this encounter Plan of Treatment Upcoming Encounters Date Type Department Care Team (Late st Contact Info) Description 08/29/2025 9:00 AM HEALTH PSYCHOLOGIST Office Visit [facility] Rheumatology- Chapin Mcneil Goran [address] [place] [address] Claudia Clements PA [address] [place] [address] 08/30/2025 10:20 AM HEALTH PSYCHOLOGIST Office Visit [facility] [address] [address] Pierre Estrada MD [address] [address] 07/18/2026 8:00 AM HEALTH PSYCHOLOGIST Office Visit [facility] [address] [address] Pierre Estrada MD [address] [address] documented as of this encounter Visit Diagnoses Not on filedocumented in this encounter Care Teams Wellness Rn Relationship Specialty Start Date End Date Pierre Etsrada MD [address] [address] PCP - General Family Practice 04/26/18 documented as of this encounter
--- NOTE | 2025-07-31 00:44 | ECG_ITS ---
[facility] Test Date: 2025-07-31 Pat Name: Jaden Yeung Department: Room: Gender: Male Director Education: : 1950 Requested By: Augusto Williamson Order Number: [id number] Carmelo MD: Man Plunkett M.D. Measurements Intervals [place] Rate: 98 P: 30 FL: 141 QRS: -10 QRSD: 85 T: 52 QT: 361 QTc: 461 Interpretive Statements SINUS RHYTHM NONSPECIFIC T-WAVE ABNORMALITY No previous ECG available for comparison Electronically Signed On 07-31-2025 21:26:35 NUCLEAR TEST TECHNICIAN by Man Plunkett M.D. [id number]
--- NOTE | 2025-07-31 00:57 | CTR_ITS ---
PROCEDURE INFORMATION: Exam: CT Abdomen And Pelvis With Contrast Exam date and time: 07/31/2025 2:26 AM Age: 75 years old Clinical indication: Abdominal pain; Additional info: [facility] for colon cancer, sudden severe luq pain. HX stones TECHNIQUE: Imaging protocol: Computed tomography of the abdomen and pelvis with contrast. Radiation optimization: All CT scans at this facility use at least one of these dose optimization techniques: automated exposure control; mA and/or kV adjustment per patient size (includes targeted exams where dose is matched to clinical indication); or iterative reconstruction. Contrast material: OMNI 350; Contrast volume: 100 ml; Contrast route: INTRAVENOUS (IV); COMPARISON: CT abdomen pelvis w con* [id number] 07/25/2025 8:09 AM RADIATION DOSE METRICS: Total DLP (mGy-cm): 889.05 FINDINGS: Liver: Normal. No mass. Gallbladder and biliary ducts: Normal. No calcified stones. No ductal dilation. Pancreas: Normal. No ductal dilation. Spleen: Normal. No splenomegaly. Adrenal glands: Normal. No mass. Kidneys and ureters: Normal. No hydronephrosis. Stomach and bowel: Wall thickening and pneumatosis of the descending and sigmoid colon, concerning for intestinal ischemia. Moderate right perirectal air extending to the subcutaneous fat. Correlate for perforation at the right lateral aspect of the rectum. Appendix: No evidence of appendicitis. Intraperitoneal space: Large volume free air in the abdomen, likely from GI perforation. Vasculature: Atherosclerotic changes of the aorta. Lymph nodes: Unremarkable. No enlarged lymph nodes. Urinary bladder: Charles catheter terminates in the urinary bladder. Reproductive: Unremarkable as visualized. Bones/joints: Degenerative changes of the spine. Soft tissues: Unremarkable. CT/CT abdomen pelvis w con* [id number] IMPRESSION: 1. Wall thickening and pneumatosis of the descending and sigmoid colon, concerning for intestinal ischemia. 2. Large volume free air in the abdomen, likely from GI perforation. 3. Moderate right perirectal air extending to the subcutaneous fat. Correlate for perforation at the right lateral aspect of the rectum. COMMENT: THIS REPORT CONTAINS FINDINGS THAT MAY BE CRITICAL TO PATIENT CARE. The exam findings were verbally communicated by me to ANDREA GAMBLE via telephone conference at 2:45 AM MICROBIOLOGY SUPERVISOR on 07/31/2025. The findings were acknowledged and understood.
--- NOTE | 2025-07-31 00:57 | XRR_ITS ---
PROCEDURE INFORMATION: Exam: XR Chest Exam date and time: 07/31/2025 1:04 AM Age: 75 years old Clinical indication: Pain; Chest pressure; Additional info: Cp TECHNIQUE: Imaging protocol: Radiologic exam of the chest. Views: 1 view. COMPARISON: CT abdomen pelvis w con* [id number] 07/25/2025 8:09 AM FINDINGS: Lungs: Unremarkable. No consolidation. Pleural spaces: Unremarkable. No pleural effusion. No pneumothorax. Heart/Mediastinum: Unremarkable. No cardiomegaly. Bones/joints: Unremarkable. Intraperitoneal space: Possible free air under the right hemidiaphragm. Correlate for recent surgery or acute abdomen. XR/XR chest 1V portable [id number] IMPRESSION: Possible free air under the right hemidiaphragm. Correlate for recent surgery or acute abdomen. Consider CT abdomen and pelvis for further evaluation.
[2025-07-31 01:36] LABS: Hematocrit 33.5 % (37-53); Hemoglobin 10.40 g/dL (11.27-16.99); Mean Corpuscular HGB Conc 31.0 g/dL (30-55); Mean Corpuscular Hemoglobin 28.7 pg (27-33); Mean Corpuscular Volume 92.3 fl (82-101); Platelet Count 541 10^3/cmm (157-399); Red Blood Count 3.63 10^6/uL (3.85-5.65); White Blood Count 16.47 10^3/uL (3.29-11.43)
[2025-07-31 01:58] LABS: Lactic Sepsis W/Reflex 3.8 mmol/L (0.5-2.2)
[2025-07-31 02:01] LABS: Troponin(5th) Baseline 22 ng/L (0-15)
[2025-07-31 02:03] LABS: Absolute Segmented Neutrophil 13.2 10/cmm (1.6-7.1); Band Neutrophils Absolute 2.0 10^3/cmm (0.0-1.2); Slide Review Slide Review Perform; Total Cells Counted 100 (0-100)
[2025-07-31 02:11] LABS: Alanine Aminotransferase 13 U/L (0-41); Albumin Level 3.1 g/dL (3.5-5.2); Alkaline Phosphatase 97 U/L (40-130); Anion Gap 23.4 (5-19); Aspartate Amino Transferase 16 U/L (0-40); Blood Urea Nitrogen 39 mg/dL (8-23); Calcium 8.3 mg/dL (8.5-10.5); Carbon Dioxide 19 mmol/L (22-29); Chloride 94 mmol/L (98-107); Globulin 2.8 g/dL (1.3-4.6); Glucose 246 mg/dL (65-115); Lipase 9 U/L (13-60); NT Pro B Type Natriuretic Pept 446 pg/mL (0-450); Osmolality Calculated 292 mOsm/kg (285-295); Potassium 4.4 mmol/L (3.5-5.1); Sodium 132 mmol/L (136-145); Total Protein 5.9 g/dL (6.6-8.7)
[2025-07-31] MEDS: morphine 4 mg/mL SDV 1 mL IVP ×2 (02:17→06:46)
[2025-07-31] MEDS: ondansetron 2 mg/ML SDV 2 mL 4 MG IVP (02:18)
--- NOTE | 2025-07-31 02:42 | W.ED.ABDPA2 ---
HPI - Abdominal Pain General: Chief Complaint: Abdominal Pain Stated Complaint: ABD PAIN Time Seen by Provider: 07/31/25 00:36 History of Present Illness: Patient is a 75-year-old male with past medical history of GERD, arthritis who presents to the ED with abdominal pain. Developed the onset of sudden worsening left-sided abdominal pain tonight, with no obvious provoking factors, has felt nauseous but no vomiting. Had been having watery diarrhea for about the last 4 months which prompted initial evaluation and was found to have what was thought to be colon cancer, was due to have a colonoscopy today. Was seen yesterday as well and found to have urinary retention with a Charles placed. Tonight, he took 4 hydrocodone's which he states did not help at all with the pain. Associated Symptoms: Reports diarrhea Related Data Home Medications ?Medication ?Instructions ?Recorded ?Confirmed atorvastatin 20 mg tablet 20 mg PO DAILY 11/21/20 07/26/25 hydrochlorothiazide 25 mg tablet 25 mg PO DAILY 11/21/20 07/26/25 acetaminophen 650 mg 1,300 mg PO Q12H PRN patient 07/25/25 07/26/25 tablet,extended release (Tylenol Arthritis Pain) azelastine 0.05 % eye drops 1 drp ophthalmic (eye) BID 07/25/25 07/26/25 cholecalciferol (vitamin D3) 1,250 1,250 mcg PO Q7D 07/25/25 07/30/25 mcg (50,000 unit) capsule dexamethasone 0.5 mg/5 mL oral See Rx Instructions .Route .COMPLEX 07/25/25 07/26/25 elixir famotidine 20 mg tablet 20 mg PO BID 07/25/25 07/26/25 finasteride 5 mg tablet 5 mg PO DAILY 07/25/25 07/26/25 hydrocortisone 2.5 % topical cream 1 applic [place] BID 07/25/25 07/26/25 with perineal applicator (Procto-Med HC) meloxicam 15 mg tablet 15 mg PO DAILY 07/25/25 07/26/25 omeprazole 20 mg capsule,delayed 20 mg PO DAILY 07/25/25 07/26/25 release potassium chloride 20 mEq 20 meq PO QAM 07/25/25 07/26/25 tablet,extended release(part/cryst) etanercept 50 mg/mL (1 mL) 50 mg SUBCUT Q7D 07/26/25 07/26/25 subcutaneous syringe (Enbrel) Previous Rx's ?Medication ?Instructions ?Recorded hydrocodone 5 mg-acetaminophen 325 1 tab PO Q6H PRN pain #15 tabs 07/25/25 mg tablet ondansetron HCl 4 mg tablet 4 mg PO Q6H PRN nausea and 07/25/25 vomiting #20 tabs Allergies Allergy/AdvReac Type Severity Reaction Status Date / Time sulfamethoxazole (From Allergy Intermediate nausea/vomi Verified 07/26/25 10:38 Bactrim) ting trimethoprim (From Bactrim) Allergy Intermediate nausea/vomi Verified 07/26/25 10:38 ting Alpha-Gal Allergy Unknown Verified 07/30/25 10:27 (Eglwzovux-Tbrxq-2,3-Gala Review of Systems General: Reports: 10 or more systems reviewed and unremarkable except in HPI and below Const: Reports: change in weight, fatigue and malaise GI: Reports: abdominal pain and diarrhea PFSH ED PFSH: Medical History (Updated 07/31/25 @ 22:52 by Andrea Gamble DO) Diverticulosis Enlarged prostate Require urology consultation Change in bowel habits Family History Father CAD (coronary artery disease) Grandmother Cancer Grandfather Stroke Denies family history of Diabetes Hypertension Social History (Updated 07/31/25 @ 04:19 by Lul Torres MD) Smoking and tobacco/nicotine status: former use of tobacco/nicotine Alcohol intake: never Substance/Drug Use: current Additional social history: Comfort care and then home with hospice if possible as discussed with Lul Torres MD and Farrah Chery on 07/31/2025 Lives independently: Yes Household members: spouse Physical Exam Narrative: EXAM NARRATIVE: Patient chronically ill-appearing and fatigued, tachycardic but normotensive on arrival, mild distress secondary to pain. Abdomen mildly distended, involuntary guarding and moderate tenderness along the left side, bowel sounds decreased, no CVA tenderness, no overlying skin changes. Sinus tach, normotensive, no murmurs, moderate amount of nonpitting edema. Breathing comfortably on room air, saturating well. GCS 15, moving all 4 extremities symmetrically and spontaneously. Course Vital Signs: Vital signs: Vital Signs Temperature 0 F L 07/31/25 09:12 Pulse Rate 0 L 07/31/25 09:12 Respiratory Rate 0 L 07/31/25 09:12 Blood Pressure 0/0 07/31/25 09:12 Pulse Oximetry 0 L 07/31/25 09:12 Oxygen Delivery Me thod Room Air 07/31/25 05:00 MDM - Abdominal Pain Medical Decision Making -ddx: SBO, hollow viscus injury, abdominal mass, intra-abdominal abscess, nephrolithiasis, pancreatitis, PUD, dehydration - Patient with abrupt onset of left-sided abdominal pain, has involuntary guarding, tachycardic, is undergoing workup for probable cancer, will get abdominal labs, CT scan, provide pain control and get CT abdomen pelvis to further assess. - Patient with only mild improvement after morphine, lactate of 3 8, moderate leukocytosis, moderate amount of free air seen on CT scan, probable perf of sigmoid colon, blood cultures drawn, Zosyn started, surgery paged, Dilaudid given additionally. - Discussed case with Dr. Giang, surgeon on-call, because of location of perforation, it was in his rectum and would require a low ostomy with a high likelihood of stump blowout and so he recommended that patient be transferred for colorectal surgery evaluation, phone calls then be gone to surrounding facilities in which time Dr. Giang spoke extensively with patient, had been seeing him in clinic and was the one that was going to do his colonoscopy later today, stated that has a comorbid condition he would be and because of this cancer and the extensive surgeries that were probably needed, after thought, patient and elected to go for comfort care and withhold all life-saving measures, at this point, attention was turned to patient comfort, he was given additional pain medication and admitted to the hospitalist for end-of-life care, at bedside and updated with plan of care. Lab Data 07/31/25 01:23 07/31/25 01:23 Labs/Radiology: Radiology Impressions Abdomen/Pelvis CT 07/31/25 00:57 IMPRESSION: 1. Wall thickening and pneumatosis of the descending and sigmoid colon, concerning for intestinal ischemia. 2. Large volume free air in the abdomen, likely from GI perforation. 3. Moderate right perirectal air extending to the subcutaneous fat. Correlate for perforation at the right lateral aspect of the rectum. COMMENT: THIS REPORT CONTAINS FINDINGS THAT MAY BE CRITICAL TO PATIENT CARE. The exam findings were verbally communicated by me to ANDREA GAMBLE via telephone conference at 2:45 AM CUSTOMER ENERGY SPECIALIST on 07/31/2025. The findings were acknowledged and understood. Chest X-Ray 07/31/25 00:57 IMPRESSION: Possible free air under the right hemidiaphragm. Correlate for recent surgery or acute abdomen. Consider CT abdomen and pelvis for further evaluation. ADDENDUM: 07/31/25 0148 COMMENT: THIS REPORT CONTAINS FINDINGS THAT MAY BE CRITICAL TO PATIENT CARE. The exam findings were verbally communicated by me to ANDREA GAMBLE via telephone conference at 1:46 AM CUSTOMER ENERGY SPECIALIST on 07/31/2025. The findings were acknowledged and understood. Laboratory Results WBC 16.47 10^3/uL (3.29-11.43) H 07/31/25 01:23 RBC 3.63 10^6/uL (3.85-5.65) L 07/31/25 01:23 Hgb 10.40 g/dL (11.27-16.99) L 07/31/25 01:23 Hct 33.5 % (37-53) L 07/31/25 01:23 MCV 92.3 fl (82-101) 07/31/25 01:23 MCH 28.7 pg (27-33) 07/31/25 01:23 MCHC 31.0 g/dL (30-55) 07/31/25 01:23 RDW 13.9 % (12.1-15.1) 07/31/25 01:23 Plt Count 541 10^3/cmm (157-399) H 07/31/25 01:23 MPV 8.0 fL (7.4-10.4) 07/31/25 01:23 Lymph % (Auto) Not Reportable 07/31/25 01:23 Long % (Auto) Not Reportable 07/31/25 01:23 Lymph # (Auto) Not Reportable 07/31/25 01:23 Long # (Auto) Not Reportable 07/31/25 01:23 Total Counted 100 (0-100) 07/31/25 01:23 Atypical Lymphs % Not Reportable 07/31/25 01:23 Absolute Neutrophils 15.2 10^3/cmm (1.4-6.5) H 07/31/25 01:23 Segmented Neutrophils 80 % 07/31/25 01:23 Band Neutrophils 12.0 % 07/31/25 01:23 Lymphocytes (Manual) 5 % 07/31/25 01:23 Monocytes (Manual) 3.0 % 07/31/25 01:23 Absolute Monocytes 0.5 10^3/cmm (0.1-0.6) 07/31/25 01:23 Eosinophils (Manual) 0 % 07/31/25 01:23 Absolute Eosinophils 0.0 10^3/cmm (0.0-0.7) 07/31/25 01:23 Basophils (Manual) 0.0 % 07/31/25 01:23 Absolute Basophils 0.0 10^3/cmm (0.0-0.2) 07/31/25 01:23 Platelet Estimate Increased (Normal) 07/31/25 01:23 Sodium 132 mmol/L (136-145) L 07/31/25 01:23 Potassium 4.4 mmol/L (3.5-5.1) 07/31/25 01:23 Chloride 94 mmol/L (98-107) L 07/31/25 01:23 Carbon Dioxide 19 mmol/L (22-29) L 07/31/25 01:23 Anion Gap 23.4 (5-19) H 07/31/25 01:23 BUN 39 mg/dL (8-23) H 07/31/25 01:23 Creatinine 0.8 mg/dL (0.7-1.2) 07/31/25 01:23 GFR Calculation Not Reportable 07/31/25 01:23 Glucose 246 mg/dL (65-115) H 07/31/25 01:23 Calculated Osmolality 292 mOsm/kg (285-295) 07/31/25 01:23 Lactic Acid 3.8 mmol/L (0.5-2.2) H 07/31/25 01:23 Calcium 8.3 mg/dL (8.5-10.5) L 07/31/25 01:23 Total Bilirubin 0.5 mg/dL (0.15-1.2) 07/31/25 01:23 AST 16 U/L (0-40) 07/31/25 01:23 ALT 13 U/L (0-41) 07/31/25 01:23 Alkaline Phosphatase 97 U/L (40-130) 07/31/25 01:23 Troponin T Baseline 22 ng/L (0-15) H 07/31/25 01:23 C-Reactive Protein 203.9 mg/L (0.0-4.9) H 07/31/25 01:23 NT-Pro-B Natriuret Pep 446 pg/mL (0-450) 07/31/25 01:23 Total Protein 5.9 g/dL (6.6-8.7) L 07/31/25 01:23 Albumin 3.1 g/dL (3.5-5.2) L 07/31/25 01:23 Globulin 2.8 g/dL (1.3-4.6) 07/31/25 01:23 Lipase 9 U/L (13-60) L 07/31/25 01:23 All radiology interpretation(s) finalized by discharge Critical Care Time Critical Care Time: Total Critical Care Time: 38 Attestation: Pneumatosis and early concerns of peritonitis/intra-abdominal sepsis in setting of metastatic colon cancer, end-of-life care Discharge Plan Discharge Patient Disposition: Placed in Observation Admit Provider: Lul Torres Clinical Impression: Perforated sigmoid colon, 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
[2025-07-31] MEDS: iohexol 350 mg/mL 500 mL Btl (per mL) IV (02:43)
--- NOTE | 2025-07-31 03:09 | PM.CONSULT ---
Providers/Reason For Consult Consulting Physician/Specialty*: dr hoyos general surgery Reason for Consult*: rectal perforation Primary Care Provider: Pierre Estrada History of Present Illness History of Present Illness Jaden Yeung is a 75 year old male known to me for a possible rectal cancer. Patient came to ED with severe abdominal pain. CT shows free air and what appears to be a low rectal perforation. Hemodynamically stable, abdomen peritonitic. at bedside. Medications/Allergies Home Medications ?Medication ?Instructions ?Recorded ?Confirmed ?Last Taken ?Type atorvastatin 20 mg tablet 20 mg PO DAILY 11/21/20 07/26/25 07/26/25 History hydrochlorothiazide 25 mg tablet 25 mg PO DAILY 11/21/20 07/26/25 07/26/25 History acetaminophen 650 mg 1,300 mg PO Q12H PRN patient 07/25/25 07/26/25 07/26/25 History tablet,extended release (Tylenol Arthritis Pain) azelastine 0.05 % eye drops 1 drp ophthalmic (eye) BID 07/25/25 07/26/25 07/26/25 History cholecalciferol (vitamin D3) 1,250 1,250 mcg PO Q7D 07/25/25 07/30/25 Unknown History mcg (50,000 unit) capsule dexamethasone 0.5 mg/5 mL oral See Rx Instructions .Route .COMPLEX 07/25/25 07/26/25 07/26/25 History elixir famotidine 20 mg tablet 20 mg PO BID 07/25/25 07/26/25 07/26/25 History finasteride 5 mg tablet 5 mg PO DAILY 07/25/25 07/26/25 07/26/25 History hydrocodone 5 mg-acetaminophen 325 1 tab PO Q6H PRN pain #15 tabs 07/25/25 07/26/25 07/26/25 Rx mg tablet hydrocortisone 2.5 % topical cream 1 applic [place] BID 07/25/25 07/26/25 07/26/25 History with perineal applicator (Procto-Med HC) meloxicam 15 mg tablet 15 mg PO DAILY 07/25/25 07/26/25 07/26/25 History omeprazole 20 mg capsule,delayed 20 mg PO DAILY 07/25/25 07/26/25 07/26/25 History release ondansetron HCl 4 mg tablet 4 mg PO Q6H PRN nausea and 07/25/25 07/26/25 07/26/25 Rx vomiting #20 tabs potassium chloride 20 mEq 20 meq PO QAM 07/25/25 07/26/25 07/26/25 History tablet,extended release(part/cryst) etanercept 50 mg/mL (1 mL) 50 mg SUBCUT Q7D 07/26/25 07/26/25 07/26/25 History subcutaneous syringe (Enbrel) Allergies Allergy/AdvReac Type Severity Reaction Status Date / Time sulfamethoxazole (From Allergy Intermediate nausea/vomi Verified 07/26/25 10:38 Bactrim) ting trimethoprim (From Bactrim) Allergy Intermediate nausea/vomi Verified 07/26/25 10:38 ting Alpha-Gal Allergy Unknown Verified 07/30/25 10:27 (Dqfnfvlum-Hmrrc-5,3-Gala PFSH Acute PFSH: Medical History (Updated 07/30/25 @ 08:35 by Teddy Grigsby MD) Diverticulosis Enlarged prostate Require urology consultation Change in bowel habits Family History Father CAD (coronary artery disease) Grandmother Cancer Grandfather Stroke Denies family history of Diabetes Hypertension Social History Smoking and tobacco/nicotine status: former use of tobacco/nicotine Alcohol intake: never Substance/Drug Use: current Lives independently: Yes Household members: spouse Vitals/I&O/Wt Last Vital Signs Temp 97.5 F L 07/31/25 00:30 Pulse 95 07/31/25 03:06 Resp 16 07/31/25 02:17 BP 103/58 07/31/25 03:06 Pulse Ox 98 07/31/25 03:06 O2 Del Method Room Air 07/31/25 03:06 Weight last 48 hrs Weight 174 lb 6 oz Physical Exam Narrative: rrr unlabored breathing ra abdomen is peritonitic Data 07/31/25 01:23 07/31/25 01:23 A&P Assessment and plan 1. Mass in rectum: Plan: 75 yo male with possible rectal cancer. Very frail. Came to ED for abdominal pain. CT findings consistent with a low rectal perforation. Had an extensive discussion with the patient and at bedside. Answered all of their questions. Presented all options including a Delfina's with a mucous fistula. Patient has been in pain for months and wants to pursue comfort care. was in agreement. I have discussed patient's wishes with ER physician and nurse. PDMP PDMP Reviewed: Not Reviewed Coding Level of Care Code 52658 Diagnoses Mass in rectum K62.89
[2025-07-31 03:20] LABS: Reflex Lactate Order REFLEX LACTIC ORDERD
[2025-07-31] MEDS: HYDROmorphone 0.5 MG/0.5 ML INJ 1 MG IVP (03:21)
[2025-07-31] MEDS: piperacillin-tazobactam 4.5 GM in sodium chloride 0.9% (plus) 50 ML IV (03:22)
--- NOTE | 2025-07-31 04:11 | PM.HP ---
Providers/Chief Complaint Primary Care Provider: Pierre Estrada Chief Complaint: ABD PAIN History of Present Illness Jaden Yeung is a 75 year old male accompanied by his Cammy and who gives most of the history. Patient has just had some Dilaudid and is somnolent. She states that he awakened her just prior to midnight complaining of abdominal pain and ambulance was called. He reports pain started around 10 PM and is severe. Patient has had bloody diarrhea and some blood in the urine for 4 months. He has been seen at [facility] several times and here at [facility] also several times. Patient would refer to Dr. Giang for colonoscopy due to findings of colonic thickening descending colon through the sigmoid and anorectal soft tissue mass 3.6 x 2.[address] scan 07/25/2025. Patient's checks x-ray showed free air today and follow-up CT scan today 07/31/2025 shows large volume free air in the abdomen consistent with GI perforation and wall thickening and pneumatosis of the descending and sigmoid colon consistent with intestinal ischemia and perforation into the bowel wall. Patient was seen by Dr. Giang and both he and Dr. Williamson spoke with the patient and family. Options were discussed including comfort care versus transfer to another hospital for colorectal surgeon or emergency high risk surgery here and patient and elected for comfort care and I was called for admission. Medications/Allergies Home Medications ?Medication ?Instructions ?Recorded ?Confirmed ?Last Taken ?Type atorvastatin 20 mg tablet 20 mg PO DAILY 11/21/20 07/26/25 07/26/25 History hydrochlorothiazide 25 mg tablet 25 mg PO DAILY 11/21/20 07/26/25 07/26/25 History acetaminophen 650 mg 1,300 mg PO Q12H PRN patient 07/25/25 07/26/25 07/26/25 History tablet,extended release (Tylenol Arthritis Pain) azelastine 0.05 % eye drops 1 drp ophthalmic (eye) BID 07/25/25 07/26/25 07/26/25 History cholecalciferol (vitamin D3) 1,250 1,250 mcg PO Q7D 07/25/25 07/30/25 Unknown History mcg (50,000 unit) capsule dexamethasone 0.5 mg/5 mL oral See Rx Instructions .Route .COMPLEX 07/25/25 07/26/25 07/26/25 History elixir famotidine 20 mg tablet 20 mg PO BID 07/25/25 07/26/25 07/26/25 History finasteride 5 mg tablet 5 mg PO DAILY 07/25/25 07/26/25 07/26/25 History hydrocodone 5 mg-acetaminophen 325 1 tab PO Q6H PRN pain #15 tabs 07/25/25 07/26/25 07/26/25 Rx mg tablet hydrocortisone 2.5 % topical cream 1 applic [place] BID 07/25/25 07/26/25 07/26/25 History with perineal applicator (Procto-Med HC) meloxicam 15 mg tablet 15 mg PO DAILY 07/25/25 07/26/25 07/26/25 History omeprazole 20 mg capsule,delayed 20 mg PO DAILY 07/25/25 07/26/25 07/26/25 History release ondansetron HCl 4 mg tablet 4 mg PO Q6H PRN nausea and 07/25/25 07/26/25 07/26/25 Rx vomiting #20 tabs potassium chloride 20 mEq 20 meq PO QAM 07/25/25 07/26/25 07/26/25 History tablet,extended release(part/cryst) etanercept 50 mg/mL (1 mL) 50 mg SUBCUT Q7D 07/26/25 07/26/25 07/26/25 History subcutaneous syringe (Enbrel) Allergies Allergy/AdvReac Type Severity Reaction Status Date / Time sulfamethoxazole (From Allergy Intermediate nausea/vomi Verified 07/26/25 10:38 Bactrim) ting trimethoprim (From Bactrim) Allergy Intermediate nausea/vomi Verified 07/26/25 10:38 ting Alpha-Gal Allergy Unknown Verified 07/30/25 10:27 (Pdmxmjnad-Ioyds-0,3-Gala PFSH Acute PFSH: Medical History (Updated 07/31/25 @ 04:22 by Lul Torres MD) Diverticulosis Enlarged prostate Require urology consultation Change in bowel habits Family History Father CAD (coronary artery disease) Grandmother Cancer Grandfather Stroke Denies family history of Diabetes Hypertension Social History (Updated 07/31/25 @ 04:19 by Lul Torres MD) Smoking and tobacco/nicotine status: former use of tobacco/nicotine Alcohol intake: never Substance/Drug Use: current Additional social history: Comfort care and then home with hospice if possible as discussed with Lul Torres MD and Farrah Chery on 07/31/2025 Lives independently: Yes Household members: spouse Vitals/I&O/Wt Last Vital Signs Temp 97.5 F L 07/31/25 00:30 Pulse 107 H 07/31/25 04:06 Resp 16 07/31/25 02:17 BP 96/63 07/31/25 04:06 Pulse Ox 96 07/31/25 04:06 O2 Del Method Room Air 07/31/25 04:06 Weight last 48 hrs Weight 79.095 kg Physical Exam Narrative: General well-developed well-nourished man in no acute cardiopulmonary stress borderline tachypneic breathing through mouth CV regular rate and rhythm Lungs clear to auscultation bilaterally with decreased effort Abdomen diminished bowel tones soft tender to palpation and to rebound Data 07/31/25 01:23 07/31/25 01:23 Micro: Microbiology 07/31/25 01:23 Blood Culture - Preliminary Blood SPECIMEN COLLECTED A&P Assessment and plan 1. Perforated sigmoid colon: Patient with CT findings and physical exam consistent with perforated rectosigmoid colon with extension to the descending colon with air in the wall of the colon as well as free air in the abdomen. 2. Mass in rectum: Had been under planned workup including colonoscopy 3. Acute retention of urine: Urine retention with Charles catheter placed on 07/30/2025 morning in the emergency department which returned 500 cc at 07 50 on 07/30/2025 4. Acute abdomen: Patient with pain and rebound consistent with perforated bowel and free air in the abdomen. This is a acutely life-threatening condition and patient has opted for comfort care. Anticipate that he will pass with comfort care in the hospital or potentially at home once hospice can be arranged. wants to take him home if possible PDMP PDMP Reviewed: Not Reviewed Attestations Medical Necessity Statement*: Patient is admitted to the hospital for comfort care to arrange hospice at home and expected to require greater than 2 midnights Coding Level of Care Code 56813 Diagnoses Perforated sigmoid colon K63.1 Mass in rectum K62.89 Acute retention of urine R33.8 Acute abdomen R10.0 Time Spent (min) 40
--- NOTE | 2025-07-31 06:35 | PC.NURSE ---
06:20 pt arrived from ER- transfer pt from bed to bed x 3 staff. pt RR 30,shallow resp. NO BP, HR 113. 164 lb, recheck BP. PIV cdi IRAJ 18G , flushes well , 10 cc SNS. pt opens and blinks eye, pt moans, unable to hear any words. 3 rd BP L -unable, switch BP IRAJ, ox sat 90, placed ox NC.unable to feel any radial or carotid pulse.
--- NOTE | 2025-07-31 06:44 | PC.NURSE ---
0644-- pt mojone w facial grimacing. adm Morphine 4 mg slow IVP. see mar
--- NOTE | 2025-07-31 06:47 | PC.NURSE ---
06:48 x5 tried to check BP and unsuccesful. Moaning has gone down. pt noted breathing 28, ox sat better 94% at RA. another attemp, NO BP. FC to gravity apx 200 cc dk deniz uo. report given to next shift. Pt cont COMFORT Measure.
--- NOTE | 2025-07-31 07:33 | PC.NURSE ---
pt is positioned supine for comfort-- report given to Cash Sanon.
--- NOTE | 2025-07-31 08:00 | PC.NURSE ---
Patient passed at 0740. Dr Dolan notified. at bedside. [facility] is the [facility] service of choice.
--- NOTE | 2025-07-31 09:20 | PC.NURSE ---
[facility] called back and stated patient was not a candidate for them.
--- NOTE | 2025-07-31 10:26 | PC.NURSE ---
Saving site on phone for chart review patient is a candidate saving site to return call to release.
--- NOTE | 2025-07-31 11:28 | PM.DDS ---
Discharge Providers DDS Date of Admission: 07/31/25 05:31 Date Summary Completed: 07/31/25 Attending Provider at Admission: Lul Torres MD Attending Provider at Discharge: Bibiana Dolan MD Primary Care Provider: Pierre CHAU Diagnoses Hospital Diagnoses 1. Perforated sigmoid colon: 2. Mass in rectum: 3. Acute retention of urine: 4. Acute abdomen: Reason for Visit Reason for Visit ABD PAIN Brief History: As per the previous admitting physician note: Jaden Yeung is a 75 year old male accompanied by his Cammy and who gives most of the history. Patient has just had some Dilaudid and is somnolent. She states that he awakened her just prior to midnight complaining of abdominal pain and ambulance was called. He reports pain started around 10 PM and is severe. Patient has had bloody diarrhea and some blood in the urine for 4 months. He has been seen at [facility] several times and here at [facility] also several times. Patient would refer to Dr. Giang for colonoscopy due to findings of colonic thickening descending colon through the sigmoid and anorectal soft tissue mass 3.6 x 2.[address] scan 07/25/2025. Patient's checks x-ray showed free air today and follow-up CT scan today 07/31/2025 shows large volume free air in the abdomen consistent with GI perforation and wall thickening and pneumatosis of the descending and sigmoid colon consistent with intestinal ischemia and perforation into the bowel wall. Patient was seen by Dr. Giang and both he and Dr. Williamson spoke with the patient and family. Options were discussed including comfort care versus transfer to another hospital for colorectal surgeon or emergency high risk surgery here and patient and elected for comfort care and I was called for admission. Summary Summary Summary: Patient admitted overnight as a case of acute abdomen secondary to perforated sigmoid colon, he was critically ill and based upon his condition and guarded prognosis the patient elected for comfort care. The patient was managed according to the protocol and unfortunately at 7:40 AM. I personally confirmed with the brain stem parameters of absence of dose side effects, and mid dilated pupils, no corneal or pupillary reflex, lack of gag reflex, absence of chest wall movements, no pulse or heart sounds or respiration on auscultation. Condolences were provided to the family May the soul rest in peace Additional Data Advance directives?: No Discharge Plan Discharge Patient Disposition: Condition: Stable Probable Cause of Probable cause of : Cardiac arrest DS Attestations Time Spent in /Discharge Care*: greater than 30 min Quality - AMI: AMI present?: No Quality - Stroke: CVA present?: No Quality - VTE: VTE present?: No Coding Level of Care Code Acute Code for Chg Fwd Diagnoses Perforated sigmoid colon K63.1 Mass in rectum K62.89 Acute retention of urine R33.8 Acute abdomen R10.0
== END 2025-07-31 13:00 | disposition expired | DRG 394 ==
LOC: ER 04:36 → MEDSURG 05:32
PROVIDERS: Admitting Provider Internal Medicine; Emergency Provider Student in an Organized Health Care Education/Training Program; PCP Family Medicine; Visit Provider Student in an Organized Health Care Education/Training Program
DX: K63.1 Perforation of intestine (nontraumatic) (principal); K92.1 Melena; Z51.5 Encounter for palliative care; K62.9 Disease of anus and rectum, unspecified; N40.1 Benign prostatic hyperplasia with lower urinary tract symptoms; R33.8 Other retention of urine; R31.9 Hematuria, unspecified; I46.9 Cardiac arrest, cause unspecified; Z87.891 Personal history of nicotine dependence
CPT/HCPCS: 36415; 71045; 74177; 80053; 83605; 83690; 83880; 84484; 85007; 85025; 86140; 87040; 93005; 96365; 96375; 96376; 99285; J1171; J2270; J2405; J2543; J9999